=== PATIENT | female | born 1995 | race Caucasian/White ===

== ENCOUNTER 2017-09-11 14:39 | Emergency (ER) | payer OTHER, SELFPAY ==
[2017-09-11 14:42] VITALS: BP 125/69; PULSE 75; RESP 16; TEMP 36.6; O2SAT 99; BMI 25.4
--- NOTE | 2017-09-11 15:05 | RAD_ITS ---
STUDY: X-RAY - LEFT WRIST REASON FOR EXAM: Female, 21 years old. Pain following a fall. TECHNIQUE: 3 view(s) of the wrist were obtained. COMPARISON: None. FINDINGS: Normal visualized distal radius and ulna. Normal radiocarpal articulation. Normal distal radioulnar articulation. Normal carpal bones. Normal carpal articulations. Normal carpometacarpal articulation of the thumb. Normal second through fifth carpometacarpal articulations. Normal visualized metacarpal bones. The soft tissue structures are unremarkable. RAD/Wrist min 3 Views IMPRESSION: Normal x-ray examination of the wrist. Electronically Signed: Alonzo Truong MD at 15:31 EDT Tel [phone], Service support ,
--- NOTE | 2017-09-11 15:15 | RAD_ITS ---
STUDY: X-RAY - LEFT RADIUS AND ULNA REASON FOR EXAM: Female, 21 years old. Left arm pain following a fall. TECHNIQUE: AP and lateral view(s) of the forearm. COMPARISON: None. FINDINGS: There is no demonstrated soft tissue swelling. Normal visualized radius. Normal visualized ulna. RAD/Forearm 2 Views IMPRESSION: Normal x-ray examination of the radius and ulna. Electronically Signed: Alonzo Truong MD at 15:30 EDT Tel [phone], Service support ,
--- NOTE | 2017-09-11 15:26 | ED.VISSUMM ---
- ER Visit Summary Date of Service: 09/11/17 Chief Complaint: Left wrist pain History of Present Illness: The patient is a 21 F who denies any prior medical history presents to the emergency department with left wrist pain and forearm injury. Patient states that last night, she had a mechanical fall. She struck the dorsum of her left forearm right in the mid area. She states that she woke today, she had increasing pain down into the wrist. She describes as a burning pain. She had she went to urgent care. They were concerned because she was complaining of numbness in her entire hand. She describes almost like a glove. She also has burning pain in her wrist and pain with motion. She has never had anything like this before. She did not strike her head. She denies any injury to her neck. Physical Examination: Exam is relatively unremarkable. The patient does complain of significant pain in the wrist with motion. There is no erythema or edema. She has normal pulses. When I hyperextend the fingers, she does flex them and opposition. When I flex, she will extend and opposition. However, she would not state she feels like she cannot move them. Her cap refill is less than 2 seconds. She complains of diminished sensation throughout the entire hand including the palmar aspect in the dorsal aspect. It is not in any neurologic distribution. Test Results: [] Emergency Department Course and Treatment: The patient's examination is inconsistent with reported symptoms. Again, she will move the hand with both extension and flexion of the fingers and wrist in opposition to movement because of pain. She will then state that she cannot move it at baseline. I do feel that likely because of pain. She describes this tingling and numbness through her hand. It is not in a dermatomal or acute nerve distribution. I am unsure if she just has a symptomatic neuropraxia that she is describing is the entire hand. I do not suspect this is a dangerous neurologic injury. She has normal pulses. Her compartments are soft. She does not guard against small range of motion through the compartments. I did obtain plain films. Really does not represent a wrist drop because she does have paresthesias in the palm diminished sensation. Her x-rays are unremarkable. I am going to treat her supportively as if there is a radial nerve palsy from the dorsal injury. She was placed in a wrist splint and start on anti-inflammatories. She is counseled on following up with orthopedics that she may need EMGs. I also counseled her symptoms persist or do not improve over the next 12-24 hours she needs to return to the emergency department. She is comfortable with this plan of care. Treatment Plan: [] Disposition: Discharge Impression:. Contusion of the dorsum of left forearm 2. Left wrist sprain 3. Hand neuropraxia This note was generated with [employer] dictation software. It may contain incorrect words, spelling, and punctuation that were not noted in review of the chart prior to signing ED Disposition - Plan for ED Patient: Chief Complaint: Upper Extremity Injury Instructions: ED Drop Wrist Prescriptions: Naproxen [Naprosyn] 500 mg PO BID #20 tab Referrals: Yelitza Thurston DO [STAFF PHYSICIAN] -
[2017-09-11] MEDS: Naproxen 500 MG Tablet PO (15:28)
== END 2017-09-11 16:06 | disposition home or self-care (01) ==
PROVIDERS: Emergency Provider Emergency Medicine; Family Provider Family Medicine; PCP Family Medicine
DX: S50.12XA Contusion of left forearm, initial encounter (principal); S63.502A Unspecified sprain of left wrist, initial encounter; S64.92XA Injury of unspecified nerve at wrist and hand level of left arm, initial encounter; W18.30XA Fall on same level, unspecified, initial encounter; Y93.89 Activity, other specified; Y92.89 Other specified places as the place of occurrence of the external cause; Y99.8 Other external cause status
CPT/HCPCS: 73090; 73110; 99283

== ENCOUNTER 2017-12-17 02:53 | Emergency (ER) | payer OTHER, SELFPAY ==
[2017-12-17 02:54] VITALS: BP 109/60; PULSE 69; RESP 15; TEMP 36.6; O2SAT 98; BMI 26.3
--- NOTE | 2017-12-17 03:10 | ED.VISSUMM ---
- ER Visit Summary Date of Service: 12/17/17 Chief Complaint: Nausea and vomiting History of Present Illness: The patient is a 22 F no significant past medical history. No prior abdominal surgery other than a prior . She states she was in her normal state of health today. Just prior to going into work around 8 PM the night she started having nausea. And then when she was at work she started having vomiting. She denies any dysuria. She denies any fever. She has had some chills. She denies any diarrhea. Her last menstrual period was November 26. She denies any bleeding. She has had prior episodes like this before. She states she feels lightheaded and dehydrated. Physical Examination: Young female no acute distress. Vital signs are stable afebrile. H EENT exam mildly dry mucous membranes otherwise unremarkable. Neck nontender no lymphadenopathy. Lungs clear to auscultation bilaterally. Heart rate and rhythm no murmur. Rate about 70. Abdomen is soft and nontender. Normal bowel sounds. Nondistended. No peritoneal signs. Both the right upper right lower quadrant unremarkable. No hernias or masses. No signs of obstruction. She is moving all 4 extremities. Neurovascular intact. Back exam nontender. Neurologically she is awake alert with no focal motor or sensory deficits. Test Results: None Emergency Department Course and Treatment: Patient treated with 1 L of normal saline with IV Zofran. Treatment Plan: Clinically the patient appears to have a viral syndrome. Fluids and rest. Zofran as needed for nausea. Follow-up with her primary care physician as needed. Disposition: Discharge Impression: Acute nausea, vomiting and chills secondary to viral syndrome Mild dehydration This note was generated with [employer] dictation software. It may contain incorrect words, spelling, and punctuation that were not noted in review of the chart prior to signing ED Disposition - Plan for ED Patient: Chief Complaint: Abd Pain Referrals: Eb Valenzuela MD [Primary Care Provider] -
[2017-12-17] MEDS: Ondansetron 4 MG/2 ML Vial IV ×2 (03:12→03:53)
[2017-12-17] MEDS: 0.9% Normal Saline 1,000 ML 1000 ML IV (03:12)
--- NOTE | 2017-12-17 03:12 | ED.DEP ---
ED Disposition - Plan for ED Patient: Disposition: Home or Assisted Living Chief Complaint: Abd Pain Instructions: ED Viral Syndrome Prescriptions: Ondansetron [Zofran Odt] 4 mg PO Q4H PRN PRN #7 tab.rapdis PRN Reason: Nausea Referrals: Eb Valenzuela MD [Primary Care Provider] - 3-5 Days if not improving Additional Instructions: Fluids and rest. Zofran as needed for nausea. [place] diet and increase slowly as tolerated. Follow-up your primary care physician if not getting better or return to the ER if worse.
--- NOTE | 2017-12-17 03:15 | DCINST.ED_ITS ---
ED Disposition - Plan for ED Patient: Disposition: Home or Assisted Living Chief Complaint: Abd Pain Instructions: ED Viral Syndrome Prescriptions: Ondansetron [Zofran Odt] 4 mg PO Q4H PRN PRN #7 tab.rapdis PRN Reason: Nausea Referrals: Eb Valenzuela MD [Primary Care Provider] - 3-5 Days if not improving Additional Instructions: Fluids and rest. Zofran as needed for nausea. [place] diet and increase slowly as tolerated. Follow-up your primary care physician if not getting better or return to the ER if worse.
[2017-12-17] MEDS: Ondansetron ODT 4 MG Tablet 8 MG PO (04:42)
[2017-12-17 04:47] VITALS: BP 110/74; PULSE 68; RESP 16; O2SAT 99
== END 2017-12-17 04:51 | disposition home or self-care (01) ==
PROVIDERS: Emergency Provider Emergency Medicine; Family Provider Family Medicine; PCP Family Medicine
DX: J06.9 Acute upper respiratory infection, unspecified (principal); E86.0 Dehydration; R11.2 Nausea with vomiting, unspecified; R68.83 Chills (without fever)
CPT/HCPCS: 96361; 96374; 96376; 99283; J7030; J2405

== ENCOUNTER 2018-02-06 05:47 | Day surgery (SDC) | payer OTHER, SELFPAY ==
[2018-02-06] VITALS (9 sets, daily range): BP systolic 93–128; BP diastolic 34–78; PULSE 58–85; RESP 16–18; TEMP 36–36.8; O2SAT 95–100; BMI 26.0
--- NOTE | 2018-02-06 06:05 | EKG12_ITS ---
Test Reason : PRE OP Blood Pressure : / mmHG Vent. Rate : 067 BPM Atrial Rate : 067 BPM P-R Int : 142 ms QRS Dur : 082 ms QT Int : 412 ms P-R-T Axes : 047 055 056 degrees QTc Int : 435 ms Sinus rhythm with marked sinus arrhythmia Confirmed by RAMESH CORONEL, ARASELI ([id number]), editor index SUKUMAR WAITE ([id number]) on 02/08/2018 2:49:38 PM Referred By: Eleni Dobbs Confirmed By:ARASELI CHANDLER MD
[2018-02-06 06:21] LABS: Internal QC Validated? YES +Cl - CLEAR BKGD; Pregnancy, Urine Negative Negative
--- NOTE | 2018-02-06 07:30 | GALL_PTH ---
PATIENT: ALTON PARSONS LOC: [facility] [place] U#:[id number] AGE/SX: 22/F ROOM: RE02/06/[address]: Dr. Eleni Dobbs MD : 1995 BED: DIS: 02/06/2018 SPEC #: [id number] RECD: 02/06/18 11:05 STATUS: BRIANDA REPeewee #: [id number] ABDIEL: 02/06/18 07:[address]: Eleni Dobbs DEPT: SURGICAL PATHOLOGY RECD BY: Jose R Rodríguez ENTERED: 02/06/18 13:04 SP TYPE: ЕКАТЕРИНА CONTRERAS DR: Dr. Eb Valenzuela MD Tissues: Gallbladder, NOS Procedures: Surgery Specimen Level III HEADER OPERATION: Laparoscopic cholecystectomy with IOC PRE-OP DIAGNOSIS: Biliary dyskinesia TISSUE SUBMITTED: Gallbladder MICROSCOPIC DIAGNOSIS Gallbladder: Chronic cholecystitis. No stones are identified in the container or in the gallbladder. SJ:maynor 02/07/18 MICROSCOPIC DESCRIPTION Slides are reviewed. GROSS DESCRIPTION Received is one container labeled with the patient's name and designated gallbladder. The specimen consists of a gallbladder measuring 8.5 cm in length and up to 3 cm in diameter. The external surface is pink-rodriguez, smooth and glistening for the most part. Focally it is granular, hemorrhagic and contains cautery artifact. The gallbladder contains green-yellow mucoid bile. No stones are identified in the container or in the gallbladder. The mucosa is bile-stained and without any mass lesions. The gallbladder wall measures up to 0.2 cm in thickness. Designer Architect sections from the gallbladder and the cystic duct are submitted in one cassette. / SJ:rg 02/06/18 TC:3 CPT: 20103
--- NOTE | 2018-02-06 07:33 | PCM.DC.GB ---
Discharge Diet: No Restrictions - drink plenty of fluids, avoid carbonated beverages for a couple of days Discharge Activity: Return to Normal Activity, May not drive while taking narcotic pain medications. Lifting Restrictions: no lifting greater than 20 pounds for 2 weeks Call your doctor if your incision/area has: Continuous Slow Oozing, Foul Smelling Discharge Call your doctor if you observe: Fever of 101 or Higher Additional Dressing/Incision Instructions:: Leave dressings in place. May get wet in shower. Do not soak wounds - no tub baths/swimming Allergies/Adverse Reactions: Allergies lavender (Lavandula angustifolia) [lavender] Allergy (Verified 02/06/18 06:49) Hives topiramate [From Topamax] Allergy (Verified 02/06/18 06:49) Other Seizure venom-honey bee [bee venom (honey bee)] Allergy (Verified 02/06/18 06:49) Anaphylaxis Medications to take at Discharge Hydrocodone Bitart/Apap 5-325 [[place] 5MG-325MG] 1 tab PO Q6H PRN PRN 4 Days #15 tab 02/06/18 The following prescriptions were given: Hydrocodone Bitart/Apap 5-325 [[place] 5MG-325MG] 1 tab PO Q6H PRN PRN 4 Days #15 tab PRN Reason: Pain Primary Care Physician: Eb aVlenzuela MD [Primary Care Provider] - Test Results: Test results from this visit will be discussed in further detail at your follow-up appointment, if applicable. Please Follow Up With: Eleni Dobbs MD - call When: in 7-10 days, please call for date and time, thank you
--- NOTE | 2018-02-06 07:35 | PCM.IMDPSTOP ---
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
--- NOTE | 2018-02-06 08:00 | RAD_ITS ---
CLINICAL HISTORY: Female, 22 years old. PROCEDURE: CHOLANGIOGRAM - INTRAOPERATIVE. FLUOROSCOPY TIME (if supplied): (1.9) seconds Dose: 0.3 mGy Placement of the catheter and the procedure were performed by: Dr. Dobbs TECHNIQUE: Fluoroscopy and single fluoroscopic spot image was provided and obtained by the Department of Radiology, under the direction, supervision and review of the surgeon. Radiologist not present intraoperatively. Please see operative note for details. FINDINGS: Iodinated contrast is noted within the cystic duct, CHD, biliary radicles, CBD and duodenum with a single fluoroscopic spot image obtained. RAD/Cholangiogram/ O R,Initial IMPRESSION: Please see operative note for details. Electronically Signed: Lázaro Ponce, at 12:09 EDT Tel , Service support ,
[2018-02-06] MEDS: Bupiv/Epi 0.5% Mpf 30 ML Vial (08:40)
--- NOTE | 2018-02-06 08:51 | PCM.OPRPT ---
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 Appropriate time out protocol was followed. She was then placed in the supine position. The patient was then placed under general endotracheal anesthesia. The abdomen was then prepped with a sterile surgical skin preparation and sterile surgical drapes were placed. The infraumbilical skin fold was grasped with penetrating clamps and the skin and subcutaneous tissues were infiltrated with 0.5% marcaine with epinephrine. A skin incision was then made with a 15 blade scalpel. The anterior abdominal wall was elevated and a Veress needle was carefully inserted into the intraabdominal cavity. It was checked to be in the proper position with a normal saline drop test. A CO2 pneumoperitoneum was then created. Once this was achieved, then the Veress needle was removed and an 11mm trocar was placed in its stead. A 10mm laparoscope was then inserted into the trocar and careful attention was directed to the intraabdominal contents. There was no evidence of injury to any intraabdominal organs from insertion of the Veress needle or the trocar. Under direct visualization, a 5mm subxiphoid trocar and two lateral 5mm right subcostal trocars were placed. The skin and subcutaneous tissues at these sites were infiltrated with 0.5% marcaine with epinephrine prior to placement of these trocars. Attention was then directed to the right upper quadrant of the abdomen. There was some omental adhesions to the free surface of the gallbladder. Graspers were placed in the lateral trocars to grasp the distal aspect of the gallbladder and direct it cephalad and to grasp the gallbladder at Hartmans pouch and direct it laterally. The omental adhesions were taken down by blunt dissection. Dissection then began on the proximal gallbladder continuing down to the area of the triangle of Calot to bluntly dissect out the cystic duct. The neck of the gallbladder was identified and blunt dissection continued to dissect out a segment of the cystic duct. A clip was then placed on the neck of the gallbladder. A small ductotomy was then made. A Ranfac catheter was brought in through a separate skin incision and placed into the cystic duct. An intraoperative cholangiogram was performed under fluoroscopy. The xray revealed no lesions in the common bile duct, arborization of the biliary tree, and good flow into the duodenum. Of note, the cystic duct was tortuous appearing. The Ranfac catheter was then removed and two clips were placed proximal to the ductotomy and the cystic duct was then transected. The cystic artery was visualized and bluntly isolated and then two clips were placed proximally and one clip distally and then it was transected between the proximal and distal clips. The gallbladder was then from the liver bed using electrocautery and thus able to be brought out of the umbilical port. It was then forwarded to pathology for analysis. The liver bed was carefully examined. There was no evidence of bile leakage or bleeding. The cystic duct stump and cystic artery stump had their clips intact and there was no evidence of bile leakage or bleeding. The remainder of the abdomen was grossly normal. The CO2 was released and all trocars removed intact. The periumbilical fascia was approximated with a [id number] 0 vicryl suture. All skin incision were closed with 4-0 monocryl in a subdermal fashion. Cavilol and Steristrips were used to reinforce the skin closure. Sterile dressings were applied to all wounds. The patient was extubated and brought to the Recovery Room in stable condition. - Complications none noted - Admit VTE Documentation VTE Present on Admission: Yes VTE Mechan Device Prophylaxis: SCD's
[2018-02-06] MEDS: HYDROcodone Bitartrate/Apap 5/325 Tablet PO (11:01)
== END 2018-02-06 11:43 | disposition home or self-care (01) ==
LOC: SDC 05:48 → AC 05:49
PROVIDERS: Family Provider Family Medicine; PCP Family Medicine; Visit Provider Surgery
PROC: (CPT 47610; principal; 2018-02-06 07:10)
DX: K81.1 Chronic cholecystitis (principal); D64.9 Anemia, unspecified; F41.9 Anxiety disorder, unspecified; F32.9 Major depressive disorder, single episode, unspecified; F17.210 Nicotine dependence, cigarettes, uncomplicated; Z79.899 Other long term (current) drug therapy
CPT/HCPCS: 47563; 74300; 76000; 81025; 88304; 93005; J7050; J7120; J2405

== ENCOUNTER 2020-02-15 14:25 | Emergency (ER) | payer MEDICAID, SELFPAY ==
[2020-02-15] VITALS (7 sets, daily range): BP systolic 113–136; BP diastolic 72–106; PULSE 78–99; RESP 12–20; TEMP 36.9; O2SAT 95–99; BMI 27.6
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
[2020-02-15 14:53] LABS: Absolute Lymphocyte Count 2.39 X10^3/uL (0.83-4.51); Absolute Neutrophil Count 5.6 X10^3/uL (2.0-7.7); Basophil# 0.02 X10^3/uL; Basophil% 0.2 % (0-1); Eosinophil# 0.05 X10^3/uL; Eosinophils% 0.6 % (0-5); Lymphocyte # 2.39 X10^3/ul (4.0); Lymphocyte % 27.8 % (19-41); Mean Corp Hgb Conc 34.2 g/dL (32-36); Mean Corpuscular Hgb 32.6 pg (27.0-32.0); Mean Corpuscular Volume 95.2 fL (81-99); Mean Platelet Vol. 9.3 fl (6.2-12.0); Monocyte# 0.47 X10^3/uL; Monocyte% 5.5 % (0-10); NRBC Flagged by Analyzer 0 % (0-5); Neutrophil # 5.64 X10^3/uL (2.7-7.7); Neutrophil % 65.7 % (47-70); Platelet Count 279 K/mm3 (150-450); RBC Distribution Width CV 11.6 % (11.6-14.6); RBC Distribution Width SD 40.1 fl (35.1-43.9); Red Blood Count 3.99 M/mm3 (4.2-5.4); White Blood Count 8.6 K/mm3 (4.4-11.0)
[2020-02-15] MEDS: Morphine 4 MG/ML Syringe IV ×3 (15:00→16:18)
[2020-02-15] MEDS: Ondansetron 4 MG/2 ML Vial IV (15:01)
[2020-02-15 15:05] LABS: Anion Gap 9 (5-15); BUN 8 mg/dL (7-18); BUN/Creat Ratio 10.4 RATIO (10-20); Calcium,Total 9.5 mg/dL (8.5-10.1); Chloride 108 mmol/L (98-107); Creatinine, Serum 0.77 mg/dL (0.55-1.02); EST Glomerular Filtration Rate 97 mL/min (>60); Est Glom Filt Rate - Afr Amer 118 mL/min (>60); Glucose 97 mg/dL (74-106); Potassium 3.4 mmol/L (3.5-5.1); Sodium Level 141 mmol/L (136-145)
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
[2020-02-15] MEDS: HYDROmorphone 0.5 MG/0.5 ML SYRINGE IV (16:51)
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
[2020-02-15] MEDS: Propofol 200 MG/20 ML Vial IV BOLUS (17:33)
[2020-02-15 17:50] LABS: Bacteria 0 SEEN /hpf (None Seen); Mucous, Urine 0 SEEN /hpf (<or=2+)
[2020-02-15 17:52] LABS: Color, Urine Yellow (Yellow); Glucose, Dipstick Normal (Normal); Leukocyte Esterase-Dipstick Negative /ul (Negative); Nitrite-Dipstick Negative (Negative); Occult Blood-Urine 50 /ul (Negative); Protein-Dipstick 15 mg/dl (Negative); Specific Gravity, Urine 1.005 (1.002-1.030); Urine Bilirubin Dipstick Negative (Negative); Urine Clarity Sl. Cloudy (Clear); Urine Urobilinogen Normal (Normal); Urine pH 6.5 (5.0 - 8.0)
[2020-02-15 17:57] LABS: Ketone-Dipstick 150 mg/dl (Negative)
[2020-02-15 18:02] LABS: Red Blood Cells-Urine 0-5 SEEN /hpf (0-5); Squamous Epithelial Cells - UA 0-5 SEEN /hpf (5-10); White Blood Cells 0-5 SEEN /hpf (0-5)
== END 2020-02-15 18:49 | disposition home or self-care (01) ==
PROVIDERS: Emergency Provider Emergency Medicine
DX: S52.531A Colles' fracture of right radius, initial encounter for closed fracture (principal); S30.1XXA Contusion of abdominal wall, initial encounter; S20.219A Contusion of unspecified front wall of thorax, initial encounter; V89.2XXA Person injured in unspecified motor-vehicle accident, traffic, initial encounter; Z23 Encounter for immunization; Z79.3 Long term (current) use of hormonal contraceptives; Z87.891 Personal history of nicotine dependence
CPT/HCPCS: 25605; 29125; 71045; 73100; 74177; 76000; 80048; 81001; 85025; 90715; 96361; 96374; 96375; 96376; 99152; 99285; J7030; Q9967; A4216; J2405

== ENCOUNTER → 2020-02-26 14:42 | Outpatient (CLI) | payer MEDICAID, SELFPAY ==
[2020-02-15 14:27] VITALS: BMI 27.6
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
== END ==
PROVIDERS: Referring Provider Orthopaedic Surgery; Visit Provider Orthopaedic Surgery
DX: M25.531 Pain in right wrist (principal); M25.561 Pain in right knee
CPT/HCPCS: 73110; 73564

== ENCOUNTER 2020-02-27 08:04 | Day surgery (SDC) | payer MEDICAID, SELFPAY ==
[2020-02-15 14:27] VITALS: BMI 27.6
[2020-02-27] VITALS (9 sets, daily range): BP systolic 104–112; BP diastolic 64–76; PULSE 68–86; RESP 14–16; TEMP 36.2–36.8; O2SAT 96–100; BMI 25.6
[2020-02-27 08:53] LABS: Internal QC Validated? YES +Cl - CLEAR BKGD; Pregnancy, Urine Negative Negative
[2020-02-27] MEDS: Lactated Ringers 1,000 ML 100 ML IV (09:12)
[2020-02-27] MEDS: Cefazolin 2 GM in 0.9% Normal Saline 100 ML IV (09:23)
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
[2020-02-27] MEDS: Mupirocin Ointment 22gm Tube 1 APPLIC (11:19)
[2020-02-27] MEDS: Bupivacaine Mpf 0.5% 30 ML VIAL (11:21)
--- NOTE | 2020-02-27 11:48 | DCINST_ITS ---
Discharge Diet: No Restrictions - leave splint intact, follow up in 2 weeks, call with concerns, move fingers as tolerated, elevate hand above heart as much as possible first week Discharge Activity: May Not Drive May shower in (days): 1 Ice area for (Minutes): 20 - Every hour while awake. Weight Bearing Status: Weight bearing as tolerated Keep extremity elevated above heart level: Operative Extremity Call your doctor if your incision/area has: Continuous Slow Oozing, Sudden Increased Bleeding, Increased Pain/ Swelling, Increased Redness, Foul Smelling Discharge Call your doctor if you observe: Fever of 101 or Higher, Coldness, Increased Pain, Numbness or Tingling, Change in Color, Calf discomfort Allergies/Adverse Reactions: Allergies lavender (Lavandula angustifolia) [lavender] Allergy (Verified 02/26/20 15:11) Hives topiramate [From Topamax] Allergy (Verified 02/26/20 15:11) Other Seizure venom-honey bee [bee venom (honey bee)] Allergy (Verified 02/26/20 15:11) Anaphylaxis oxycodone Adverse Reaction (Verified 02/27/20 08:58) Itching Medications to take at Discharge Hydrocodone Bitart/Apap 5-325 [Redfield 5MG-325MG] 1 - 2 tablet PO Q6H PRN PRN 5 Days #40 tablet 02/27/20 The following prescriptions were given: Hydrocodone Bitart/Apap 5-325 [Redfield 5MG-325MG] 1 - 2 tablet PO Q6H PRN PRN 5 Days #40 tablet PRN Reason: Pain Transmission Status: Sent to [facility] Primary Care Physician: Eb Valenzuela MD [Primary Care Provider] - Test Results: Test results from this visit will be discussed in further detail at your follow- up appointment, if applicable. Please Follow Up With: Yelitza Thurston, DO - [phone]
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
== END 2020-02-27 14:38 | disposition home or self-care (01) ==
LOC: SDC 08:05 → AC 08:06
PROVIDERS: PCP Family Medicine; Referring Provider Orthopaedic Surgery; Visit Provider Orthopaedic Surgery
PROC: (CPT 25607; principal; 2020-02-27 09:20)
DX: S52.551A Other extraarticular fracture of lower end of right radius, initial encounter for closed fracture (principal); V47.6XXA Car passenger injured in collision with fixed or stationary object in traffic accident, initial encounter; Y93.9 Activity, unspecified; Y92.9 Unspecified place or not applicable; Y99.9 Unspecified external cause status; Z87.891 Personal history of nicotine dependence
CPT/HCPCS: 25607; 64415; 73100; 76000; 81025; C1713; J7120; J2405

== ENCOUNTER → 2021-06-27 09:56 | Outpatient (CLI) | payer SELFPAY ==
[2021-06-27 10:58] LABS: hCG Titer Quant., Serum 10 mIU/mL (1-3)
== END ==
LOC: PAVLAB 09:56
PROVIDERS: PCP Family Medicine; Referring Provider Obstetrics & Gynecology; Visit Provider Obstetrics & Gynecology
DX: N91.2 Amenorrhea, unspecified (principal)
CPT/HCPCS: 36415; 84702

== ENCOUNTER → 2021-06-29 09:21 | Outpatient (CLI) | payer SELFPAY ==
[2021-06-29 10:10] LABS: hCG Titer Quant., Serum 8 mIU/mL (1-3)
== END ==
LOC: PAVLAB 09:22
PROVIDERS: PCP Family Medicine; Referring Provider Obstetrics & Gynecology; Visit Provider Obstetrics & Gynecology
DX: Z34.90 Encounter for supervision of normal pregnancy, unspecified, unspecified trimester (principal)
CPT/HCPCS: 36415; 84702

== ENCOUNTER 2021-07-05 12:08 | Outpatient (CLI) | payer SELFPAY ==
[2021-07-05 14:33] LABS: hCG Titer Quant., Serum 7 mIU/mL (1-3)
== END 2021-07-05 23:59 | disposition short-term general hospital (02) ==
LOC: LAB 12:09
PROVIDERS: PCP Family Medicine; Referring Provider Obstetrics & Gynecology; Visit Provider Obstetrics & Gynecology
DX: O20.0 Threatened abortion (principal); Z3A.00 Weeks of gestation of pregnancy not specified
CPT/HCPCS: 36415; 84702

== ENCOUNTER 2021-07-13 12:22 | Outpatient (CLI) | payer SELFPAY ==
[2021-07-13 13:07] LABS: hCG Titer Quant., Serum 5 mIU/mL (1-3)
== END 2021-07-13 23:59 | disposition short-term general hospital (02) ==
LOC: PAVLAB 12:23
PROVIDERS: PCP Family Medicine; Referring Provider Nurse Practitioner Women's Health; Visit Provider Nurse Practitioner Women's Health
DX: O20.0 Threatened abortion (principal); Z3A.00 Weeks of gestation of pregnancy not specified
CPT/HCPCS: 36415; 84702

== ENCOUNTER → 2022-02-13 | Outpatient (CLI) | payer SELFPAY ==
[2022-02-13 17:01] LABS: HIV - WCH Non-Reactive (Nonreactive); Hepatitis C Antibody Non-Reactive (Nonreactive); Syphilis Antibodies Non-reactive
[2022-02-15 21:06] LABS: Chlamydia By Nucleic Acid AMP Negative (Negative)
[2022-02-16 07:41] LABS: Gonococcus By Nucleic Acid AMP Negative (Negative)
== END | disposition home or self-care (01) ==
PROVIDERS: PCP Family Medicine; Referring Provider Nurse Practitioner Women's Health; Visit Provider Nurse Practitioner Women's Health
DX: N76.0 Acute vaginitis (principal); Z20.2 Contact with and (suspected) exposure to infections with a predominantly sexual mode of transmission
CPT/HCPCS: 36415; 86703; 86780; 86803; 87070; 87205; 87491; 87591

== ENCOUNTER 2022-02-17 00:30 | Emergency (ER) | payer SELFPAY ==
[2022-02-17 00:31] VITALS: BP 138/95; PULSE 102; RESP 18; TEMP 36.4; O2SAT 98; BMI 27.2
[2022-02-17 01:39] VITALS: PULSE 72; RESP 15; O2SAT 98
--- NOTE | 2022-02-17 01:39 | EDS_ITS ---
HPI History of Present Illness Chief Complaint: Allergic Reaction Narrative Narrative: 26-year-old female presenting with allergic reaction. Patient states that she developed a rash, hives felt like her throat might be swelling. She took a rapid release Claritin. She states she has not had any new soaps, dyes, detergents, linens, lotions, etc. She ate [employer] right after she took some Flagyl that she is taking for bacterial vaginosis. She states she was prescribed this and took the first dose tonight. Patient states that she did drink some white claw the day before at a concert but had not been drinking tonight. On arrival to the ED her rash is rapidly resolving. She has no hives. She still little bit itchy. Her throat does not feel like it is closed. She is not short of breath. Patient does state that she has severe anxiety and became very anxious after the symptoms started which may have exacerbated the symptoms. [facility] Medical History Anxiety Possible exposure to STD Status post elective Home Medications levonorgestrel 20 mcg/24 hours (7 yrs) 52 mg intrauterine device (Mirena) 1 device intrauterine ONCE 02/13/22 [History Last Taken Unknown] metronidazole 500 mg tablet 500 mg PO BID 7 days #14 tabs 02/15/22 [Rx Last Taken Unknown] diphenhydramine HCl 25 mg capsule (Benadryl) 25 mg PO TID PRN allergic reaction #10 caps 02/17/22 [Rx Last Taken Unknown] Allergy/AdvReac Type Severity Reaction Status Date / Time lavender (Lavandula Allergy Hives Verified 02/17/22 00:36 angustifolia) [lavender] topiramate [From Topamax] Allergy Other Verified 02/17/22 00:36 venom-honey bee Allergy Anaphylaxis Verified 02/17/22 00:36 [bee venom (honey bee)] oxycodone AdvReac Itching Verified 02/17/22 00:36 Family History Grandmother Diabetes Surgical History S/P S/P cholecystectomy S/P tonsillectomy S/P wisdom tooth extraction S/P wrist surgery Social History Smoking Status: Current some day smoker tobacco type: cigarettes and smokeless tobacco Electronic Cigarette Use: with nicotine alcohol intake: never substance use type: does not use caffeine: Yes what type of physical activity do you participate in: none seatbelt use: always do you feel safe at home: Yes additional social history: Boyfriend- Danilo ANN [facility] ED Constitutional Constitutional ED: Denies chills or fever(s) Eyes Eyes: Denies change in vision or diplopia ENT ENT ED: Reports other Details: Throat tightness ; Denies rhinorrhea Cardiovascular Cardiovascular: Denies chest pain or palpitations Respiratory/Chest Respiratory/Chest: Denies cough or dyspnea Gastrointestinal Gastrointestinal: Denies abdominal pain Genitourinary Genitourinary ED: Denies dysuria or hematuria Integumentary Reports rash and other Details: Itching Neurologic Neurologic: Denies headache(s) Psychiatric Psychiatric: Reports anxiety; Denies depression EXAM Physical Exam Const Vital Signs: 02/17/22 00:31 Temperature 97.5 F L Temperature Source Temporal Pulse Rate 102 H Respiratory Rate 18 Blood Pressure 138/95 H Blood Pressure Mean 109 Pulse Ox 98 Oxygen Delivery Method Room Air Positive well nourished General Appearance ED: NAD; Negative for pallor HEENT Reports moist mucous membranes normocephalic Face and Sinus: normal facial exam Nose: external nose normal Mouth ED: Yes oral and palatal mucosa normal, Yes lips normal, Yes tongue normal, Yes salivary gland normal, Yes moist mucous membranes normal, No dysphonia, No drooling, No muffled voice and No trismus Mouth: oral and palatal mucosa normal, lips normal, tongue normal, salivary gland normal, No dysphonia, No drooling, No muffled voice and No trismus Throat: posterior oropharynx normal, tonsils normal and uvula midline Eyes PERRL and EOMs intact bilaterally General Eye ED: Negative for pale conjunctiva or scleral icterus Chest Wall inspection of chest normal Resp normal respiratory effort and clear to auscultation bilaterally Auscultation: Negative for rales, rhonchi or wheezes Cardio regular rate and regular rhythm GI normal to inspection, nondistended, normoactive bowel sounds Extremity normal to inspection General Extremety ED: Negative for edema or tenderness General Extremity: Negative for edema Neuro oriented x3, CN's II-XII intact bilaterally and no sensory deficits noted Psych Mood & Affect: anxious Skin no rashes or lesions noted General Skin Exam: Negative for jaundice or pallor MDM MDM MDM Narrative Medical decision making narrative: Patient has rapidly improving symptoms. She has no rash on exam. Her airway is patent without stridor. No oropharyngeal edema, sublingual edema. She speaking in full sentences. Lungs are clear to auscultation. Abdomen soft nontender. Patient took Flagyl tonight for the first time for bacterial vaginosis and apparently drank white claws yesterday at a concert. I did look at the guidelines and apparently she is supposed to wait 3 days after drinking to take Flagyl because of the risk of a disulfamide reaction. I suspect this was the cause. Patient counseled to discontinue use of alcohol. I did recommend that she call her [employer] tomorrow to talk about alternatives but likely she can restart this after a couple of days of not drinking. She states he is taken this several times before without any allergies. Impression: 1. Disulfiram like reaction 2. Allergic reaction 3. History of BV Lab Data Attestation: I reviewed the patient's lab results. Discharge Plan Triage Chief Complaint: Allergic Reaction ED Provider: Otf Bess Dx/Rx/DC Orders Instructions: ED General Allergic Reactions Prescriptions: New diphenhydramine HCl [Benadryl] 25 mg capsule 25 mg PO TID PRN (Reason: allergic reaction) Qty: 10 0RF No Action Mirena 20 mcg/24 hours (7 yrs) 52 mg intrauterine device 1 device intrauterine ONCE Label Comments: 08/2021 Rx Instructions: as a single dose metronidazole 500 mg tablet 500 mg PO BID 7 Days Qty: 14 0RF Primary Care Provider: Eb Valenzuela Referrals: Eb Valenzuela MD [Primary Care Provider] - Daisy Kuhn NP, TEMPORARY STAFF ACCOUNTANT-C [Med Staff - Adv Practice Prof] - 3-5 Days Disposition Disposition: Home, Self Care
[2022-02-17] MEDS: DiphenhydrAMINE 12.5 MG/5 ML UDC 25 MG PO (01:42)
== END 2022-02-17 01:52 | disposition home or self-care (01) ==
PROVIDERS: Emergency Provider Student in an Organized Health Care Education/Training Program; PCP Family Medicine; Visit Provider Student in an Organized Health Care Education/Training Program
DX: L27.0 Generalized skin eruption due to drugs and medicaments taken internally (principal); T50.6X5A Adverse effect of antidotes and chelating agents, initial encounter; T51.91XA Toxic effect of unspecified alcohol, accidental (unintentional), initial encounter; N76.0 Acute vaginitis; F41.9 Anxiety disorder, unspecified; F17.210 Nicotine dependence, cigarettes, uncomplicated; Z79.899 Other long term (current) drug therapy
CPT/HCPCS: 99283

== ENCOUNTER 2022-02-20 16:16 | Emergency (ER) | payer SELFPAY ==
[2022-02-20 16:18] VITALS: BP 108/82; PULSE 87; RESP 16; TEMP 37.1; O2SAT 98; BMI 26.6
--- NOTE | 2022-02-20 16:40 | EDS_ITS ---
HPI History of Present Illness Chief Complaint: General Illness Detail of Chief Complaint: COVID exposure. Informant: patient Onset/Context/Timing Onset: Today Context: Gradual Onset Timing: Continuous Current Severity: Mild Maximum Severity: Mild Narrative Narrative: 26-year-old healthy female roommate recently tested positive for COVID on Sunday. Patient states she started to have body aches, sore throat mild headache with nausea no vomiting no diarrhea. No fever no dysuria. Denies any shortness of breath. Prior similar symptoms: No Recent Illness/Hospitalization: No PFSH PFSH Medical History Anxiety Status post elective Home Medications levonorgestrel 20 mcg/24 hours (7 yrs) 52 mg intrauterine device (Mirena) 1 device intrauterine ONCE 02/13/22 [History Last Taken Unknown] metronidazole 500 mg tablet 500 mg PO BID 7 days #14 tabs 02/15/22 [Rx Last Taken Unknown] diphenhydramine HCl 25 mg capsule (Benadryl) 25 mg PO TID PRN allergic reaction #10 caps 02/17/22 [Rx Last Taken Unknown] ondansetron 4 mg disintegrating tablet 4 mg PO Q6H PRN nausea and vomiting #7 tabs 02/20/22 [Rx Last Taken Unknown] Allergy/AdvReac Type Severity Reaction Status Date / Time lavender (Lavandula Allergy Hives Verified 02/20/22 16:17 angustifolia) [lavender] topiramate [From Topamax] Allergy Other Verified 02/20/22 16:17 venom-honey bee Allergy Anaphylaxis Verified 02/20/22 16:17 [bee venom (honey bee)] oxycodone AdvReac Itching Verified 02/20/22 16:17 Family History Grandmother Diabetes Surgical History S/P S/P cholecystectomy S/P tonsillectomy S/P wisdom tooth extraction S/P wrist surgery Social History Smoking Status: Current some day smoker tobacco type: cigarettes and smokeless tobacco Electronic Cigarette Use: with nicotine alcohol intake: never substance use type: does not use caffeine: Yes what type of physical activity do you participate in: none seatbelt use: always do you feel safe at home: Yes additional social history: Boyfriend- Danilo ANN ROS ED ROS Narrative Nausea. Headache. Body aches. Sore throat. Review of Systems ROS Unobtainable: Denies due to encephalopathy Constitutional Constitutional ED: Denies chills or fever(s) Eyes Eyes: Denies blurry vision ENT ENT ED: Reports sore throat; Denies ear pain or rhinorrhea Cardiovascular Cardiovascular: Denies chest pain or palpitations Respiratory/Chest Respiratory/Chest: Denies cough or dyspnea Gastrointestinal Gastrointestinal: Reports nausea; Denies abdominal pain, constipation, diarrhea, melena or vomiting Genitourinary Genitourinary ED: Denies dysuria or hematuria Musculoskeletal Musculoskeletal: Reports arthralgias and myalgias Integumentary Denies abscess or Abrasions Neurologic Neurologic: Reports headache(s) Psychiatric Psychiatric: Denies anxiety Endocrine Endocrinology: Denies cold intolerance Hematologic/Lymphatic Hematologic/Lymphatic: Reports none; Denies easy bruising or lymphadenopathy Allergic/Immunologic Allergic/Immunologic ED: Denies mouth swelling or tongue swelling EXAM Physical Exam Narrative Exam Narrative: Well-appearing 26-year-old female. Vital signs stable afebrile. Pulse ox 90% on room air no hypoxia. Exam normal. Posterior pharynx normal no strep. Neck nontender no meningismus. No lymphadenopathy. Lungs are clear. Heart regular rhythm no murmur. Abdomen soft nontender. Moving all 4 extremities. Neurologic exam normal. NIH is 0. Const Vital Signs: 02/20/22 16:18 Temperature 98.8 F Temperature Source Temporal Pulse Rate 87 Respiratory Rate 16 Blood Pressure 108/82 H Blood Pressure Mean 90 Pulse Ox 98 Oxygen Delivery Method Room Air Positive well nourished, well developed and unkempt; Negative for obese, cachectic or contractures General Appearance ED: unkempt, well developed and NAD; Negative for cachectic, contractures, cyanotic, diaphoretic or pallor Nutritional Appearance: Negative for cachectic or obese HEENT Reports moist mucous membranes; Denies dry mucous membranes Negative for trauma or tenderness Mouth ED: No dry mucous membranes Mouth: No dry mucous membranes Eyes PERRL and EOMs intact bilaterally General Eye ED: Negative for pale conjunctiva Neck no lymphadenopathy, supple and no JVD General: Negative for tenderness Lymph Lymphatic: other Chest Wall inspection of chest normal and palpation of chest normal Chest: Negative for other Resp normal respiratory effort and clear to auscultation bilaterally Effort and Inspection: Negative for retractions Auscultation: Negative for rales or rhonchi Cardio regular rate, regular rhythm, S1 normal heart sound, S2 normal heart sound and no murmurs Palpation: Negative for palpable S3 Rate: Negative for bradycardia Rhythm: Negative for abnormal rhythm GI normal to inspection, nondistended, normoactive bowel sounds, non-tender, non- distended and no masses Inspection: Negative for abdominal distention Auscultation: normoactive bowel sounds Palpation: soft; Negative for tender, guarding, splenomegaly or mass Back/Spine no CVA tenderness General Back: Negative for CVA tenderness Cervical Spine: Negative for cervical spine tenderness Thoracic Spine / Upper Back: Negative for thoracic spinal tenderness Extremity normal to inspection General Extremety ED: Negative for edema or tenderness General Extremity: Negative for edema Neuro oriented x3 and CN's II-XII intact bilaterally Sensorium / Orientation: alert; Negative for orientation impaired, lethargic or stuporous Sensory Exam: No sensory level loss detected Motor Exam: strength 5/5 throughout; Negative for general weakness Psych mental status grossly normal Appearance: unkempt Attitude: No agitated Mood & Affect: Negative for depressed Skin no rashes or lesions noted, no wounds and skin turgor normal General Skin Exam: Negative for elasticity normal, jaundice or pallor Lesions: No lesion noted Rashes: No rashes noted Trauma: Negative for abrasion Wounds: Negative for wounds noted MDM MDM MDM Narrative Medical decision making narrative: Young female with viral symptoms with a roommate that is COVID-positive for the last 3 days. She will be tested for COVID. She requested nausea medication and she will be given p.o. Zofran and p.o. Tylenol. Repeat exam unchanged. Discussed with patient even though her COVID test is negative she still may have COVID versus another virus. Fluids and rest. Zofran as needed for nausea. Motrin Tylenol for body aches and any fever. Return if feeling a lot worse. Follow-up with your doctor if not improving. Lab Data Lab results narrative: Rapid COVID test is negative. Discharge Plan Triage Chief Complaint: General Illness ED Provider: Mihir Christianson Dx/Rx/DC Orders Instructions: ED Viral Syndrome (Adult) Prescriptions: New ondansetron 4 mg tablet,disintegrating 4 mg PO Q6H PRN (Reason: nausea and vomiting) Qty: 7 0RF No Action Mirena 20 mcg/24 hours (7 yrs) 52 mg intrauterine device 1 device intrauterine ONCE Label Comments: 08/2021 Rx Instructions: as a single dose diphenhydramine HCl [Benadryl] 25 mg capsule 25 mg PO TID PRN (Reason: allergic reaction) Qty: 10 0RF metronidazole 500 mg tablet 500 mg PO BID 7 Days Qty: 14 0RF Primary Care Provider: Eb Valenzuela Referrals: Eb Valenzuela MD [Primary Care Provider] - 1 Week if not improving Activity Restrictions/Additional Instructions: Plenty of fluids and rest. Motrin and Tylenol for body aches and any fever. Follow-up with your doctor if not improving return if worse. Zofran as needed for nausea. If you are not nauseated you do not need to take it at all. Disposition Disposition: Home, Self Care
[2022-02-20] MEDS: Acetaminophen 500 MG Tablet 1000 MG PO (16:50)
[2022-02-20] MEDS: Ondansetron ODT 4 MG Tablet PO (16:50)
== END 2022-02-20 18:15 | disposition home or self-care (01) ==
PROVIDERS: Emergency Provider Emergency Medicine; PCP Family Medicine; Visit Provider Emergency Medicine
DX: Z20.822 Contact with and (suspected) exposure to COVID-19 (principal); M25.50 Pain in unspecified joint; M79.10 Myalgia, unspecified site; J02.9 Acute pharyngitis, unspecified; R51.9 Headache, unspecified; R11.0 Nausea; F41.9 Anxiety disorder, unspecified; F17.210 Nicotine dependence, cigarettes, uncomplicated
CPT/HCPCS: 87811; 99282

== ENCOUNTER → 2023-02-20 | Outpatient (CLI) | payer SELFPAY ==
[2023-02-20 15:01] LABS: Absolute Lymphocyte Count 2.08 X10^3/uL (0.83-4.51); Absolute Neutrophil Count 3.6 X10^3/uL (2.0-7.7); Basophil# 0.04 X10^3/uL; Basophil% 0.6 % (0-1); Eosinophils% 1.6 % (0-5); Hematocrit 37.1 % (37-47); Hemoglobin 12.9 g/dL (12.0-15.0); Lymphocyte # 2.08 X10^3/ul (0.83-4.51); Lymphocyte % 33.7 % (19-41); Mean Corp Hgb Conc 34.8 g/dL (32-36); Mean Corpuscular Hgb 32.7 pg (27.0-32.0); Mean Corpuscular Volume 93.9 fL (81-99); Mean Platelet Vol. 9.3 fl (6.2-12.0); Monocyte# 0.32 X10^3/uL; Monocyte% 5.2 % (0-10); NRBC Flagged by Analyzer 0 % (0-5); Neutrophil # 3.62 X10^3/uL (2.7-7.7); Neutrophil % 58.7 % (47-70); Platelet Count 251 K/mm3 (150-450); RBC Distribution Width CV 11.6 % (11.6-14.6); RBC Distribution Width SD 39.6 fl (35.1-43.9); Red Blood Count 3.95 M/mm3 (4.2-5.4); White Blood Count 6.2 K/mm3 (4.4-11.0)
[2023-02-20 15:33] LABS: Thyroid Stim Hormone (TSH) 0.67 uIU/mL (0.358-3.74)
== END | disposition home or self-care (01) ==
PROVIDERS: PCP Family Medicine; Referring Provider Obstetrics & Gynecology; Visit Provider Obstetrics & Gynecology
DX: N93.9 Abnormal uterine and vaginal bleeding, unspecified (principal)
CPT/HCPCS: 36415; 84443; 85025

== ENCOUNTER → 2023-03-02 | Outpatient (CLI) | payer SELFPAY ==
--- NOTE | 2023-03-02 14:44 | US_ITS ---
INDICATION: aub EXAMINATION: Ultrasound US Pelvis Non OB Complete With Transvaginal Imaging TECHNIQUE: Transabdominal and transvaginal pelvic ultrasound was performed. Grayscale, spectral waveform, and color flow Doppler evaluation of the adnexa. COMPARISON: None. FINDINGS: UTERUS: Anteverted. The uterus measures 9.8 x 5.7 x 3.8 cm. There is no uterine mass. The endometrial stripe measures 2.5 mm in AP diameter which is within normal limits. Cervical nabothian cyst. RIGHT OVARY: 4.6 x 3.2 x 3.0 cm. Dominant follicle measures up to 2.3 cm. There is normal arterial inflow and venous outflow present in the right ovary. LEFT OVARY: 4.2 x 3.0 x 2.8 cm. Dominant follicle measures up to 1.8 cm. There is normal arterial inflow and venous outflow present in the left ovary. FREE FLUID: None. US/Pelvic (Non ) IMPRESSION: No acute findings in the pelvis. Electronically Signed: Ethan Figueroa MD at 23:46 EDT ,
== END | disposition home or self-care (01) ==
PROVIDERS: PCP Family Medicine; Referring Provider Obstetrics & Gynecology; Visit Provider Obstetrics & Gynecology
DX: N93.9 Abnormal uterine and vaginal bleeding, unspecified (principal)
CPT/HCPCS: 76830; 76856

== ENCOUNTER → 2023-03-06 | Outpatient (CLI) | payer SELFPAY ==
--- NOTE | 2023-03-06 | EMB_PTH ---
PATIENT: ALTON PARSONS LOC: [facility] U#:[id number] AGE/SX: 27/F ROOM: RE03/06/[address]: ROLF Botello : 1995 BED: DIS: 03/06/2023 SPEC #: [id number] RECD: 03/06/23 15:20 STATUS: BRIANDA OCHOA #: [id number] ABDIEL: 03/06/23 00:[address]: Daisy Kuhn NP DEPT: SURGICAL PATHOLOGY RECD BY: Sylwia Malloy ENTERED: 03/07/23 08:52 SP TYPE: ENDOM BX/C NAMHR DR: Dr. Eb Valenzuela MD Tissues: Endometrium, NOS Procedures: Surgery Specimen Level IV Comments: @ Originally on account #[id number] Req #[id number] HEADER OPERATION: Endometrial biopsy PRE-OP DIAGNOSIS: Abnormal uterine bleeding TISSUE SUBMITTED: Endometrial tissue MICROSCOPIC DIAGNOSIS Endometrial biopsy: Proliferative endometrium. CARA:maynor 03/08/2023 MICROSCOPIC DESCRIPTION Slides are reviewed. GROSS DESCRIPTION Received is one container labeled with the patient's name and not further designated. The specimen consists of multiple fragments of hemorrhagic soft tissue mixed with mucoid tissue that in aggregate measure 3.0 x 2.5 x 0.2 cm. The specimen is totally submitted in one cassette. / CARA:maynor 03/07/2023 TC:4 CPT: 04729
== END | disposition home or self-care (01) ==
PROVIDERS: PCP Family Medicine; Referring Provider Nurse Practitioner Women's Health; Visit Provider Nurse Practitioner Women's Health
DX: N93.9 Abnormal uterine and vaginal bleeding, unspecified (principal)
CPT/HCPCS: 88305

== ENCOUNTER 2023-06-11 04:31 | Emergency (ER) | payer SELFPAY ==
[2023-06-11 04:32] VITALS: BP 117/71; PULSE 95; RESP 14; TEMP 36.6; O2SAT 96; BMI 27.3
[2023-06-11] MEDS: Ondansetron 4 MG/2 ML Vial IV (05:07)
[2023-06-11] MEDS: 0.9% Normal Saline (1000mL) 1,000 ML 999 ML IV ×2 (05:07→06:10)
--- NOTE | 2023-06-11 05:43 | EX.ED.DYSGE1 ---
HPI History of Present Illness Chief Complaint: Nausea/Vomiting Informant: patient Narrative Narrative: Patient is a female approximately 7 weeks . She states with her other 2 pregnancies she experienced extreme nausea and vomiting. She reports for the past 24 hours she has not been able to hold any food or fluid down. She denies any loose stool or diarrhea. She denies any vaginal bleeding discharge or dysuria. She states that in the past Zofran has helped control her symptoms but she does not have this at home. With concern for dehydration she presents for evaluation [facility] Medical History Alcohol use Anemia Anxiety Bipolar 1 disorder COVID-19 Depression Migraine headache Seizures Smoker Status post elective Home Medications vits no.130-ferrous fum 27 mg iron-folic acid 800 mcg tablet ( Vitamin) 1 tab PO DAILY 04/05/23 [History Last Taken Unknown] ondansetron 4 mg disintegrating tablet 4 mg PO TID PRN nausea and vomiting #21 tabs 06/11/23 [Rx Last Taken Unknown] Allergy/AdvReac Type Severity Reaction Status Date / Time lavender (Lavandula Allergy Hives Verified 06/11/23 04:36 angustifolia) [lavender] topiramate [From Topamax] Allergy Other Verified 06/11/23 04:36 venom-honey bee Allergy Anaphylaxis Verified 06/11/23 04:36 [bee venom (honey bee)] marijuana (cannabis) AdvReac Severe Seizures Verified 06/11/23 04:36 oxycodone AdvReac Itching Verified 06/11/23 04:36 Family History Grandmother Diabetes Surgical History S/P S/P cholecystectomy S/P tonsillectomy S/P wisdom tooth extraction S/P wrist surgery Social History number of children: 3 current occupational status: employed current occupation: [employer] in [place] Smoking Status: Former smoker Electronic Cigarette Use: with nicotine and not used alcohol intake: current alcohol intake frequency: other substance use type: does not use caffeine: Yes Type: coffee Number of servings: 1 what type of physical activity do you participate in: none seatbelt use: always do you feel safe at home: Yes additional social history: Boyfriend - Jorge Luis ANN ROS ED Constitutional Constitutional ED: Denies chills or fever(s) ENT ENT ED: Denies sore throat Cardiovascular Cardiovascular: Denies chest pain Respiratory/Chest Respiratory/Chest: Denies cough or dyspnea Gastrointestinal Gastrointestinal: Reports nausea and vomiting; Denies abdominal pain or diarrhea Genitourinary Genitourinary ED: Denies dysuria or hematuria Musculoskeletal Musculoskeletal: Denies myalgias Integumentary Denies rash Neurologic Neurologic: Denies headache(s) Hematologic/Lymphatic Hematologic/Lymphatic: Denies easy bleeding or easy bruising EXAM Physical Exam Const Vital Signs: 06/11/23 04:32 Temperature 98 F Temperature Source Temporal Pulse Rate 95 Respiratory Rate 14 Blood Pressure 117/71 Blood Pressure Mean 86 Pulse Ox 96 Oxygen Delivery Method Room Air Positive well nourished and well developed General Appearance ED: well developed; Negative for pallor HEENT Reports dry mucous membranes HEENT Narrative: No signs of infection noted in the posterior pharynx Mouth ED: Yes dry mucous membranes Mouth: dry mucous membranes Eyes PERRL and EOMs intact bilaterally General Eye ED: Negative for scleral icterus Neck supple Neck Narrative: No nuchal rigidity or meningeal signs noted Resp normal respiratory effort and clear to auscultation bilaterally Cardio regular rate and regular rhythm Rate: other Other Details: Heart is regular rate and rhythm without murmurs rubs or gallops GI non-tender and non-distended GI Narrative: Abdomen is soft nontender nondistended with hyperactive bowel sounds No voluntary guarding or rigidity Auscultation: hyperactive bowel sounds Palpation: soft Back/Spine no CVA tenderness Extremity normal to inspection Extremity Narrative: No asymmetric edema no pitting edema negative Homans' sign bilaterally Neuro oriented x3, CN's II-XII intact bilaterally and no sensory deficits noted Sensorium / Orientation: alert Motor Exam: strength 5/5 throughout Psych mental status grossly normal Skin no rashes or lesions noted Skin Narrative: Skin turgor is slightly increased General Skin Exam: Negative for jaundice or pallor MDM MDM MDM Narrative Medical decision making narrative: Patient presented to the ER with stable vitals and a soft nonsurgical abdomen. Denied any abdominal pain vaginal bleeding or discharge and therefore I do not feel need for an emergent ultrasound. Differential diagnosis is hyperemesis gravidarum versus acute kidney injury versus electrolyte abnormality versus severe dehydration. Patient blood work was obtained which reveal no clinically significant findings to her kidney function or electrolyte. Patient was given Zofran which resolved her vomiting and she was hydrated with 2 L of fluid. At this time as her history and exam indicate dehydration but laboratory studies and vitals indicate dehydration is more mild in nature and patient is now able to tolerate oral fluid she was given Zofran for home and discharged. History & Record Review Discussion w/independent historian: Patient Lab Data Attestation: I reviewed the patient's lab results. Labs: Laboratory Results - last 24 hr 06/11/23 05:00 Sodium 138 Potassium 3.6 Chloride 108 H Carbon Dioxide 23.0 Anion Gap 7 BUN 6 L Creatinine 0.52 L Estim Creat Clear Calc 144.94 Est GFR (MDRD) Af Amer 182 Est GFR (MDRD) Non-Af 150 BUN/Creatinine Ratio 11.6 Glucose 103 Calcium 8.4 L Magnesium 2.0 Discharge Plan Triage Chief Complaint: Nausea/Vomiting ED Provider: Blaine Luis Dx/Rx/DC Orders Clinical Impression: Hyperemesis gravidarum, Dehydration Instructions: Dehydration, ED Hyperemesis Gravidarum Prescriptions: New ondansetron 4 mg tablet,disintegrating 4 mg PO TID PRN (Reason: nausea and vomiting) Qty: 21 2RF No Action Vitamin 27 mg iron- 800 mcg tablet 1 tab PO DAILY Primary Care Provider: Eb Valenzuela Referrals: bE Valenzuela MD [Primary Care Provider] - Activity Restrictions/Additional Instructions: Please use the Zofran as directed to help prevent further nausea and vomiting and keep yourself well-hydrated. Return to the ER should you have any further concerns Disposition Disposition: Home, Self Care
[2023-06-11 05:53] LABS: Anion Gap 7 (5-15); BUN 6 mg/dL (7-18); BUN/Creat Ratio 11.6 RATIO (10-20); Calcium,Total 8.4 mg/dL (8.5-10.1); Chloride 108 mmol/L (98-107); Creatinine, Serum 0.52 mg/dL (0.55-1.02); EST Glomerular Filtration Rate 150 mL/min (>60); Est Glom Filt Rate - Afr Amer 182 mL/min (>60); Estimated Creatinine Clearance 144.94 ml/min; Glucose 103 mg/dL (74-106); Potassium 3.6 mmol/L (3.5-5.1); Sodium Level 138 mmol/L (136-145)
[2023-06-11 07:01] VITALS: BP 129/88; PULSE 76; RESP 15; O2SAT 98
== END 2023-06-11 07:03 | disposition home or self-care (01) ==
PROVIDERS: Emergency Provider Emergency Medicine; PCP Family Medicine; Visit Provider Emergency Medicine
DX: O21.1 Hyperemesis gravidarum with metabolic disturbance (principal); Z3A.01 Less than 8 weeks gestation of pregnancy; Z87.891 Personal history of nicotine dependence
CPT/HCPCS: 80048; 83735; 96361; 96374; 99283; J7030; A4216; J2405

== ENCOUNTER → 2023-06-13 | Outpatient (CLI) | payer SELFPAY ==
[2023-06-18 08:07] LABS: Chlamydia By Nucleic Acid AMP Negative (Negative); Gonococcus By Nucleic Acid AMP Negative (Negative)
== END | disposition home or self-care (01) ==
LOC: LABSPEC 13:31
PROVIDERS: PCP Family Medicine; Referring Provider Registered Nurse; Visit Provider Registered Nurse
DX: Z34.90 Encounter for supervision of normal pregnancy, unspecified, unspecified trimester (principal); Z3A.00 Weeks of gestation of pregnancy not specified
CPT/HCPCS: 87086; 87088; 87491; 87591

== ENCOUNTER → 2023-07-09 | Outpatient (CLI) | payer SELFPAY ==
[2023-07-09 15:44] LABS: Absolute Lymphocyte Count 2.56 X10^3/uL (0.83-4.51); Absolute Neutrophil Count 4.8 X10^3/uL (2.0-7.7); Basophil# 0.04 X10^3/uL; Basophil% 0.5 % (0-1); Eosinophil# 0.12 X10^3/uL; Eosinophils% 1.5 % (0-5); Hematocrit 37.3 % (37-47); Lymphocyte # 2.56 X10^3/ul (0.83-4.51); Lymphocyte % 31.8 % (19-41); Mean Corp Hgb Conc 34.9 g/dL (32-36); Mean Corpuscular Hgb 32.5 pg (27.0-32.0); Mean Corpuscular Volume 93.3 fL (81-99); Monocyte% 6.2 % (0-10); NRBC Flagged by Analyzer 0 % (0-5); Neutrophil # 4.81 X10^3/uL (2.7-7.7); Neutrophil % 59.6 % (47-70); Platelet Count 254 K/mm3 (150-450); RBC Distribution Width CV 11.6 % (11.6-14.6); RBC Distribution Width SD 39.7 fl (35.1-43.9); White Blood Count 8.1 K/mm3 (4.4-11.0)
[2023-07-09 16:40] LABS: NATERA MAILED SPECIMEN
[2023-07-09 17:24] LABS: HIV - WCH Non-Reactive (Nonreactive); Hepatitis B Surface Antigen Non-Reactive (Nonreactive); Hepatitis C Antibody Non-Reactive (Nonreactive); Rubella IgG Reactive (Nonreactive); Syphilis Antibodies Non-reactive
== END | disposition home or self-care (01) ==
PROVIDERS: Registered Nurse; PCP Family Medicine; Referring Provider Obstetrics & Gynecology; Visit Provider Obstetrics & Gynecology
DX: Z34.81 Encounter for supervision of other normal pregnancy, first trimester (principal); Z3A.00 Weeks of gestation of pregnancy not specified
CPT/HCPCS: 36415; 85025; 86703; 86762; 86780; 86803; 86850; 86900; 86901; 87340

== ENCOUNTER → 2023-08-06 | Outpatient (CLI) | payer SELFPAY ==
--- OUTSIDE RECORDS SUMMARY | 2023-08-06 17:46 | XMS RPT_ITS | CCD ---
Author Name Unknown Address [address] [place] [address] Organization [facility] Care Team Providers Care Bone Crusher Name Role Phone EARL CABRAL Unavailable Unavailable CELSO SCOTT Unavailable Unavailable GABRIEL CONTRERAS Unavailable Unavailable CELSO SCOTT Unavailable Unavailable LOMASNEY DO~[id number], MARCIE WASHBURN Admitting Unavailable LOMASNEY DO~[id number], MARCIE WASHBURN Attending Unavailable AA NO PCP NO PCP, NO PCP~[id number] AA NO PCP Pr imary Care Unavailable DAGOBERTO CONRAD MD Attending Unavailable DAGOBERTO CONRAD MD Primary Care Unavailable DAGOBERTO CONRAD MD Admitting Unavailable JAIME AVILA Attending Unavailable JAIME AVILA Primary Care Unavailable JAIME AVILA Admitting Unavailable JAIME AVILA Attending Unavailable JAIME AVILA Primary Care Unavailable JAIME AVILA Admitting Unavailable Celso Scott MD Primary Care Provider CELSO SCOTT Primary Care Unavailab le Allergies Allergy Classification Reported Allergen(s) Allergy Type Date of Onset Reaction(s) Facility (1 source) topiramate Drug Allergy [facility] Repository (1 source) oxyCODONE Drug Allergy [facility] Repository (1 source) topiramate Drug Allergy [facility] Repository (3 sources) BEE STING; Translations: [BEE STING] Propensity to adverse reactions (disorder) 6 Shortness of Breath [facility] Repository (1 source) LAVENDAR; Translations: [LAVENDAR] Propensity to adverse reactions (disorder) [facility] Repository (2 sources) topiramate; Translations: [TOPIRAMATE] Drug Allergy 6 Other: See Comments [facility] Work Phone: (2 sources) Lavender; Translations: [LAVENDER] Drug Allergy [address] [facility] Medications Current Medications Medication Drug Class(es) Dates Sig (Normalized) Sig (Original) levonorgestrel 0.418998 mg/hr intrauterine system (2 sources) Progestin, Progestin-containi ng Intrauterine Device Start: 08-30-2011 End: 09-04-2026 levonorgestrel (MIRENA) 20 mcg/24 hours (7 yrs) 52 mg IUD Indications: Encounter for IUD insertion 1 Each by INTRAUTERINE route as directed. 1 Each 0 09/05/2021 09/04/2026 Active Completed/Discontinued Medications Medication Drug Class(es) Dates Sig (Normalized) Sig (Original) naproxen 375 mg oral tablet (1 source) Nonsteroidal Anti-inflammatory Drug Start: 08-22-2021 take 1 tablet by mouth every eight hours as needed naproxen (NAPROSYN) 375 mg tablet Take 1 tablet by mouth three times daily as needed (pain). 60 tablet 1 08/22/2021 Active Problems Active Problems Problem Classification Problem Date Documented Da te Episodic/Chronic Abdominal pain (2 sources) Pelvic and perineal pain; Translations: [PELVIC AND PERINEAL PAIN] Onset: 01-22-2023 Episodic Immunizations and screening for infectious disease (1 source) Contact with and (suspected) exposure to infections with a predominantly sexual mode of transmission; Translations: [CONTCT W EXPOS INFECT SEXUAL TRNSMS] Onset: 01-22-2023 Episodic Mood disorders (1 source) Bipolar affective disorder, currently depressed, moderate; Translations: [Bipolar disorder, current episode depressed, moderate] Onset: 05-08-2017 05-08-2017 Chronic Other gastrointestinal disorders (1 source) Malabsorption - iron; Translations: [Intestinal malabsorption, unspecified] Onset: 09-20-2016 09-20-2016 Chronic Other upper respiratory infections (1 source) Upper respiratory infection; Translations: [Acute upper respiratory infection, unspecified] 06-10-2023 Episodic Residual codes; unclassified (1 source) High risk heterosexual behavior; Translations: [HIGH RISK HETEROSEXUAL BEHAVIOR] Onset: 01-22-2023 Episodic Past or Other Problems Problem Classification Problem Date Documented Date Episodic/Chronic Deficiency and other anemia (1 source) Megaloblastic anemia due to vitamin B>12< deficiency; Translations: [Other megaloblastic anemias, not elsewhere classified] Onset: 09-20-2016 09-20-2016 Episodic Deficiency and other anemia (1 source) Iron deficiency anemia; Translations: [Iron deficiency anemia, unspecified] Onset: 09-20-2016 09-20-2016 Episodic Viral infection (1 source) Herpes simplex; Translations: [Herpesviral infection, unspecified] Onset: 08-18-2015 08-18-2015 Episodic Results Test Name Value Interpretation Reference Range Facil ity Vital Signs Date Time Vital Sign Value Performing Clinician Faci lity 06-10-2023 11:23-0500 Body temperature 98.1 [degF] Miraclericardo Araujo FIELD TEST ENGINEER.INGREDIENT MIXER Work Phone: [facility] 06-10-2023 11:23-0500 Body weight 74.39 kg Miracleeliu Araujo FIELD TEST ENGINEER.INGREDIENT MIXER Work Phone: [facility] 06-10-2023 11:23-0500 Diastolic blood pressure 71 mm[Hg] Miracle Araujo FIELD TEST ENGINEER.INGREDIENT MIXER Work Phone: [facility] 06-10-2023 11:23-0500 Heart rate 76 /min Miracleeliu Ruggierogs FIELD TEST ENGINEER.INGREDIENT MIXER Work Phone: [facility] 06-10-2023 11:23-0500 Respiratory rate 20 /min Miracle Araujo FIELD TEST ENGINEER.INGREDIENT MIXER Work Phone: [facility] 06-10-2023 11:23-0500 SaO2% (BldA) [Mass fraction] 100 % Miracle Araujo FIELD TEST ENGINEER.INGREDIENT MIXER Work Phone: [facility] 06-10-2023 11:23-0500 Systolic blood pressure 113 mm[Hg] Miracle Araujo FIELD TEST ENGINEER.INGREDIENT MIXER Work Phone: [facility] Encounters Encounter Date Encounter Type Care Provider Facility Start: 06-10-2023 End: 06-10-2023 ambulatory CELSO SCOTT Facility:[facility] Start: 06-10-2023 End: 06-10-2023 Patient encounter procedure Miracle Araujo FIELD TEST ENGINEER.INGREDIENT MIXER Work Phone: [facility] Procedures Date Procedure Procedure Detail Performing Clinician Start: 06-10-2023 STREP A MOLECULAR (POC) [facility] Provider Start: 05-26-2023 Urinalysis DAGOBERTO Espinosa Plan of Treatment Date Care Activity Detail Author Start: 05-14-2027 Urine microalbumin profile DTaP,Tdap,Td Vaccine (10 - Td or Tdap) [facility] Start: 08-22-2024 Pap Testing Pap Testing [facility] Start: 06-10-2023 End: 06-24-2023 COVID & INFLUENZA A/B & RSV NAAT, ROUTINE COVID & INFLUENZA A/B & RSV NAAT, ROUTINE Microbiology Routine Upper respiratory tract infection, unspecified type Expected: 06/10/2023, Expires: 06/24/2023 [facility] Work Phone: Immunizations Immunization Date Immunization Notes Care Provider Zay jules 05-08-2017 influenza, injectabl e, quadrivalent, contains preservative Miracle Araujo FIELD TEST ENGINEER.INGREDIENT MIXER Work Phone: [facility] 05-08-2017 influenza virus vaccine, unspecified formulation Miracle Araujo FIELD TEST ENGINEER.INGREDIENT MIXER Work Phone: [facility] 04-14-2016 influenza, injectabl e, quadrivalent, contains preservative Miracle Araujo FIELD TEST ENGINEER.INGREDIENT MIXER Work Phone: [facility] 09-15-2015 tetanus toxoid, redu codi diphtheria toxoid, and acellular pertussis vaccine, adsorbed Miracle Araujo FIELD TEST ENGINEER.INGREDIENT MIXER Work Phone: [facility] Work Phone: 06-28-2011 influenza virus vaccine, unspecified formulation Miracle Araujo FIELD TEST ENGINEER.INGREDIENT MIXER Work Phone: [facility] 05-24-2010 influenza virus vaccine, live, attenuated, for intranasal use Miracle Araujo FIELD TEST ENGINEER.INGREDIENT MIXER Work Phone: [facility] Work Phone: 05-04-2009 influenza virus vaccine, live, attenuated, for intranasal use Miracle Araujo FIELD TEST ENGINEER.[facility] Work Phone: [facility] Work Phone: 01-22-2008 human papilloma viru s vaccine, quadrivalent Miracle Araujo FIELD TEST ENGINEER.[facility] Work Phone: [facility] 08-28-2007 human papilloma viru s vaccine, quadrivalent Miracle Araujo FIELD TEST ENGINEER.[facility] Work Phone: [facility] Work Phone: 06-13-2007 human papilloma viru s vaccine, quadrivalent Miracle Araujo FIELD TEST ENGINEER.[facility] Work Phone: [facility] Work Phone: 06-13-2007 influenza virus vaccine, live, attenuated, for intranasal use Miracle Araujo FIELD TEST ENGINEER.[facility] Work Phone: [facility] Work Phone: 06-13-2007 Meningococcal, MCV4, unspecified conjugate formulation(groups A, C, Y and W-135) Miracle Araujo FIELD TEST ENGINEER.[facility] Work Phone: [facility] Work Phone: 06-13-2007 tetanus toxoid, redu codi diphtheria toxoid, and acellular pertussis vaccine, adsorbed Miracle Araujo FIELD TEST ENGINEER.[facility] Work Phone: [facility] Work Phone: 06-14-2004 influenza virus vaccine, unspecified formulation Miracle Araujo FIELD TEST ENGINEER.[facility] Work Phone: [facility] Work Phone: 01-17-2000 diphtheria, tetanus toxoids and acellular pertussis vaccine Miracle Araujo FIELD TEST ENGINEER.INGREDIENT MIXER Work Phone: [facility] Work Phone: 01-17-2000 measles, mumps and rubella virus vaccine Miracle Araujo FIELD TEST ENGINEER.INGREDIENT MIXER Work Phone: [facility] Work Phone: 01-17-2000 poliovirus vaccine, inactivated Miracle Araujo FIELD TEST ENGINEER.[facility] Work Phone: [facility] Work Phone: 08-02-1998 chicken pox (disease) Shaheed a Yasemin FIELD TEST ENGINEER.[facility] Work Phone: [facility] Work Phone: 04-30-1996 diphtheria, tetanus toxoids and acellular pertussis vaccine Miracle Araujo FIELD TEST ENGINEER.[facility] Work Phone: [facility] Work Phone: 04-30-1996 haemophilus influenz ae type b vaccine, HbOC conjugate Miracle Araujo FIELD TEST ENGINEER.[facility] Work Phone: [facility] Work Phone: 04-30-1996 measles, mumps and rubella virus vaccine Miracle Araujo FIELD TEST ENGINEER.[facility] Work Phone: [facility] Work Phone: 08-21-1995 hepatitis B vaccine, pediatric or pediatric/adolescent dosage Miraclericardo Araujo FIELD TEST ENGINEER.[facility] Work Phone: [facility] Work Phone: 05-30-1995 diphtheria, tetanus toxoids and acellular pertussis vaccine Miracle Araujo FIELD TEST ENGINEER.[facility] Work Phone: [facility] Work Phone: 05-30-1995 haemophilus influenz ae type b vaccine, HbOC conjugate Miracle Araujo FIELD TEST ENGINEER.[facility] Work Phone: [facility] Work Phone: 05-30-1995 trivalent poliovirus vaccine, live, oral Miracle Araujo FIELD TEST ENGINEER.[facility] Work Phone: [facility] 03-28-1995 diphtheria, tetanus toxoids and pertussis vaccine Miracle Araujo FIELD TEST ENGINEER.[facility] Work Phone: [facility] Work Phone: 03-28-1995 haemophilus influenz ae type b vaccine, HbOC conjugate Miracle Araujo FIELD TEST ENGINEER.[facility] Work Phone: [facility] Work Phone: 03-28-1995 hepatitis B vaccine, pediatric or pediatric/adolescent dosage Miracle Araujo FIELD TEST ENGINEER.INGREDIENT MIXER Work Phone: [facility] Work Phone: 03-28-1995 trivalent poliovirus vaccine, live, oral Miracle Araujo FIELD TEST ENGINEER.INGREDIENT MIXER Work Phone: [facility] 01-31-1995 diphtheria, tetanus toxoids and pertussis vaccine Miracle Araujo FIELD TEST ENGINEER.[facility] Work Phone: [facility] Work Phone: 01-31-1995 haemophilus influenz ae type b vaccine, HbOC conjugate Miracle Araujo FIELD TEST ENGINEER.[facility] Work Phone: [facility] Work Phone: 01-31-1995 hepatitis B vaccine, pediatric or pediatric/adolescent dosage Miracle Araujo FIELD TEST ENGINEER.[facility] Work Phone: [facility] Work Phone: 01-31-1995 trivalent poliovirus vaccine, live, oral Miracle Araujo FIELD TEST ENGINEER.[facility] Work Phone: [facility] Payers Date Payer Category Payer Unknown [id number] 1994 Unknown [id number] 1994 Unknown [id number] 1994 Unknown [id number] 1959 Self-pay Unknown [id number] Social History Date Type Detail Facility Start: [facility]23 [facility] History of tobacco use Current smoker [facility] History of tobacco use Cigarette Smoker C [facility] Start: 06-09-2020 End: 06-10-2023 Cigarettes smoked current (pack per day) - Reported 0.[address] [facility] Start: 06-10-2023 Tobacco use and exposure Smoke less tobacco non-user [facility] Start: 06-10-2023 Alcohol intake Current non-dr therapist asst of alcohol (finding) [facility] Start: 06-09-2020 End: 06-10-2023 Tobacco use panel [facility] Adult Depression Scr eening Assessment [address] [facility] Start: 06-10-2023 Tobacco Comment father outdoors [facility] Start: 05-05-[address] [facility] Start: 1995 Sex Assigned At Female C [facility] Start: 01-22-2020 Gender identity Identifies as female gender (finding) [facility] Start: 01-22-2020 Sexual orientation Bisexual (finding ) [facility] Note 06-10-2023 Addendum Note - Miracle Araujo APRN.CNP - 06/10/2023 2:58 PM EST Note Date & Type Note Facility 06-10-2023 Miscellaneous Notes Addended by: MIRACLE ARAUJO on: 06/10/2023 02:58 PM Modules accepted: Orders documented in this encounter [facility] Progress note 06-10-2023 Note Date & Type Note Facility 06-10-2023 Note HNO ID: [id number] Author: Miracle Araujo APRN.CNP Service: ? Author Type: Nurse Practitioner Type: Progress Notes Filed: 06/10/2023 11:51 AM Note Text: This note was created using NoteWriter. Subjective Alton Parsons is a 27 year old female. 27 year old female with PMH anemia presents for complaints of illness. Acute onset of symptoms was this morning. Endorses she woke up with multiple symptoms +sore throat +headache +nasal congestion +body aches +fatigue +fever + chills +N/V (states her baseline related to ) currently 7 weeks Denies abdominal pain Denies vaginal bleeding Denies vaginal discharge The history is provided by the patient. No foreign language instructor was used. Flu Like Symptoms This is a new problem. The current episode started today. The problem occurs constantly. The problem has been unchanged. Associated symptoms include arthralgias, congestion, coughing, fatigue, a fever, headaches, myalgias and a sore throat. Pertinent negatives include no abdominal pain, anorexia, change in bowel habit, chest pain, chills, joint swelling, nausea, neck pain, numbness, rash, swollen glands, urinary symptoms, vertigo, visual change, vomiting or weakness. Nothing aggravates the symptoms. She has tried nothing for the symptoms. The treatment provided no relief. PAST MEDICAL HISTORY Diagnosis Date Acne Anemia Anxiety Bipolar disorder (HCC) Depression Enteritis due to Rotavirus 8 mo Genital herpes Headache(784.0) PMH - PAST MEDICAL HISTORY OF febrile seizures PMH - PAST MEDICAL HISTORY OF 05/03/2000 normal color vision hemorrhage Seizure (HCC) Varicella 1999 age 5-6 years PAST SURGICAL HISTORY Procedure Laterality Date SECTION HX 2017 EXTRACTION, ERUPTED TOOTH OR EXPOSED ROOT (ELEVATION AND/OR FORCEPS REMOVAL) 2011 REMOVAL GALLBLADDER 01/2018 TONSILLECTOMY PRIMARY/SECONDARY WRIST SURGERY HX Right metal in wrist ALLERGIES Bee Sting, Lavender, and Topamax [Topiramate] MEDICATIONS PNV no.95/ferrous fum/folic ac ( MULTIVITAMINS ORAL) Take 1 tablet by mouth once daily. levonorgestrel (MIRENA) 20 mcg/24 hours (7 yrs) 52 mg IUD 1 Each by INTRAUTERINE route as directed. (Patient not taking: Reported on 06/10/2023) naproxen (NAPROSYN) 375 mg tablet Take 1 tablet by mouth three times daily as needed (pain). (Patient not taking: Reported on 06/10/2023) levonorgestrel (MIRENA) 20 mcg/24 hr INTRAUTERINE IUD 1 Each by INTRAUTERINE route one time only for 1 dose. FAMILY HISTORY Problem Relation Age of Onset other (irregular heart beat) Mother Diabetes Maternal Grandfather Hypertension Maternal Grandfather maternal side other (heart disease) Maternal Grandfather maternal side other (anuerysm) Maternal Grandfather paternal side Social History Tobacco Use Smoking status: Former Packs/day: .5 Types: Cigarettes Smokeless tobacco: Never Tobacco comments: father outdoors Vaping Use Vaping Use: current everyday user Substances: Nicotine Substance Use Topics Alcohol use: No Drug use: No Review of Systems Constitutional: Positive for fatigue and fever. Negative for chills. HENT: Positive for congestion, postnasal drip, sinus pressure, sinus pain and sore throat. Eyes: Negative for photophobia, pain, discharge, redness, itching and visual disturbance. Respiratory: Positive for cough. Negative for apnea, choking and chest tightness. Cardiovascular: Negative for chest pain, palpitations and leg swelling. Gastrointestinal: Negative for abdominal pain, anorexia, change in bowel habit, nausea and vomiting. Musculoskeletal: Positive for arthralgias and myalgias. Negative for joint swelling and neck pain. Skin: Negative for color change, pallor and rash. Allergic/Immunologic: Positive for immunocompromised state. Negative for environmental allergies and food allergies. Neurological: Positive for headaches. Negative for vertigo, weakness and numbness. Hematological: Negative for adenopathy. Does not bruise/bleed easily. Psychiatric/Behavioral: Negative for agitation and behavioral problems. Objective BP 113/71 Pulse 76 Temp 36.7 ?C (98.1 ?F) Resp 20 Wt 74.4 kg (164 lb) LMP (LMP Unknown) SpO2 100% BMI 26.47 kg/m? Physical Exam Vitals and nursing note reviewed. Constitutional: General: She is not in acute distress. Appearance: Normal appearance. She is normal weight. She is not ill-appearing, toxic-appearing or diaphoretic. HENT: Head: Normocephalic and atraumatic. Right Ear: Ear canal and external ear normal. Left Ear: Ear canal and external ear normal. Nose: Congestion present. No rhinorrhea. Mouth/Throat: Mouth: Mucous membranes are moist. Pharynx: Posterior oropharyngeal erythema present. No oropharyngeal exudate. Eyes: General: Right eye: No discharge. Left eye: No discharge. Extraocular Movements: (more content not included)... [facility] History of Present illness Narrative 06-10-2023 Miracle Araujo APRN.[facility] - 06/10/2023 11:43 AM EST Note Date & Type Note Facility 06-10-2023 History of Presen t illness Narrative This note was created using [employer]qSearch[employer]. Subjective Alton Parsons is a 27 year old female. 27 year old female with PMH anemia presents for complaints of illness. Acute onset of symptoms was this morning. Endorses she woke up with multiple symptoms +sore throat +headache +nasal congestion +body aches +fatigue +fever + chills +N/V (states her baseline related to ) currently 7 weeks Denies abdominal pain Denies vaginal bleeding Denies vaginal discharge The history is provided by the patient. No foreign language instructor was used. Flu Like Symptoms This is a new problem. The current episode started today. The problem occurs constantly. The problem has been unchanged. Associated symptoms include arthralgias, congestion, coughing, fatigue, a fever, headaches, myalgias and a sore throat. Pertinent negatives include no abdominal pain, anorexia, change in bowel habit, chest pain, chills, joint swelling, nausea, neck pain, numbness, rash, swollen glands, urinary symptoms, vertigo, visual change, vomiting or weakness. Nothing aggravates the symptoms. She has tried nothing for the symptoms. The treatment provided no relief. PAST MEDICAL HISTORY Diagnosis Date Acne Anemia Anxiety Bipolar disorder (HCC) Depression Enteritis due to Rotavirus 8 mo Genital herpes Headache(784.0) PMH - PAST MEDICAL HISTORY OF febrile seizures PMH - PAST MEDICAL HISTORY OF 05/03/2000 normal color vision hemorrhage Seizure (HCC) Varicella 1998 age 5-6 years PAST SURGICAL HISTORY Procedure Laterality Date SECTION HX 2017 EXTRACTION, ERUPTED TOOTH OR EXPOSED ROOT (ELEVATION AND/OR FORCEPS REMOVAL) 2011 REMOVAL GALLBLADDER 01/2018 TONSILLECTOMY PRIMARY/SECONDARY <AGE 11 WRIST SURGERY HX Right metal in wrist ALLERGIES Bee Sting, Lavender, and Topamax [Topiramate] MEDICATIONS PNV no.95/ferrous fum/folic ac ( MULTIVITAMINS ORAL) Take 1 tablet by mouth once daily. levonorgestrel (MIRENA) 20 mcg/24 hours (7 yrs) 52 mg IUD 1 Each by INTRAUTERINE route as directed. (Patient not taking: Reported on 06/10/2023) naproxen (NAPROSYN) 375 mg tablet Take 1 tablet by mouth three times daily as needed (pain). (Patient not taking: Reported on 06/10/2023) levonorgestrel (MIRENA) 20 mcg/24 hr INTRAUTERINE IUD 1 Each by INTRAUTERINE route one time only for 1 dose. FAMILY HISTORY Problem Relation Age of Onset other (irregular heart beat) Mother Diabetes Maternal Grandfather Hypertension Maternal Grandfather maternal side other (heart disease) Maternal Grandfather maternal side other (anuerysm) Maternal Grandfather paternal side Social History Tobacco Use Smoking status: Former Packs/day: .5 Types: Cigarettes Smokeless tobacco: Never Tobacco comments: father outdoors Vaping Use Vaping Use: current everyday user Substances: Nicotine Substance Use Topics Alcohol use: No Drug use: No Review of Systems Constitutional: Positive for fatigue and fever. Negative for chills. HENT: Positive for congestion, postnasal drip, sinus pressure, sinus pain and sore throat. Eyes: Negative for photophobia, pain, discharge, redness, itching and visual disturbance. Respiratory: Positive for cough. Negative for apnea, choking and chest tightness. Cardiovascular: Negative for chest pain, palpitations and leg swelling. Gastrointestinal: Negative for abdominal pain, anorexia, change in bowel habit, nausea and vomiting. Musculoskeletal: Positive for arthralgias and myalgias. Negative for joint swelling and neck pain. Skin: Negative for color change, pallor and rash. Allergic/Immunologic: Positive for immunocompromised state. Negative for environmental allergies and food allergies. Neurological: Positive for headaches. Negative for vertigo, weakness and numbness. Hematological: Negative for adenopathy. Does not bruise/bleed easily. Psychiatric/Behavioral: Negative for agitation and behavioral problems. Objective BP 113/71 Pulse 76 Temp 36.7 C (98.1 F) Resp 20 Wt 74.4 kg (164 lb) LMP (LMP Unknown) SpO2 100% BMI 26.47 kg/m Physical Exam Vitals and nursing note reviewed. Constitutional: General: She is not in acute distress. Appearance: Normal appearance. She is normal weight. She is not ill-appearing, toxic-appearing or diaphoretic. HENT: Head: Normocephalic and atraumatic. Right Ear: Ear canal and external ear normal. Left Ear: Ear canal and external ear normal. Nose: Congestion present. No rhinorrhea. Mouth/Throat: Mouth: Mucous membranes are moist. Pharynx: Posterior oropharyngeal erythema present. No oropharyngeal exudate. Eyes: General: Right eye: No discharge. Left eye: No discharge. Extraocular Movements: Extraocular movements intact. Conjunctiva/sclera: Conjunctivae normal. Pupils: Pupils are equal, round, and reactive to light. Cardiovascular: Rate and Rhythm: Normal rate and regular rhythm. Pulses: Normal pulses. Heart sounds: Normal heart sounds. No murmur heard. No friction rub. Pulmonary: Effort: Pulmonary effort is normal. No respiratory distress. Breath sounds: Normal breath sounds. No stridor. No wheezing, rhonchi or rales. Chest: Chest wall: No tenderness. Abdominal: General: Abdomen is flat. There is no distension. Palpations: Abdomen is soft. There is no mass. Tenderness: There is no abdominal tenderness. There is no right CVA tenderness, left CVA tenderness, guarding or rebound. Hernia: No hernia is present. Musculoskeletal: General: No swelling, tenderness, deformity or signs of injury. Normal range of motion. Cervical back: Normal range of motion and neck supple. No rigidity. Right lower leg: No edema. Left lower leg: No edema. Lymphadenopathy: Cervical: No cervical adenopathy. Skin: General: Skin is warm and dry. Capillary Refill: Capillary refill takes less than 2 seconds. Coloration: Skin is not jaundiced or pale. Findings: No bruising, erythema, lesion or rash. Neurological: General: No focal deficit present. Mental Status: She is alert and oriented to person, place, and time. Cranial Nerves: No cranial nerve deficit. Sensory: No sensory deficit. Motor: No weakness. Coordination: Coordination normal. Gait: Gait normal. Psychiatric: Mood and Affect: Mood normal. Behavior: Behavior normal. Thought Content: Thought content normal. Judgment: Judgment normal. Assessment and Plan ASSESSMENT/PLAN: 1. Upper respiratory tract infection, unspecified type - ICD9: 465.9, ICD10: J06.9 Acute onset this morning upon awakening (Less than 5 hours sleep) Hemodynamically stable - Discussed viral etiology and rationale for treatment. - Group A strep molecular testing negative - Symptomatic treatment with prn analgesia - Supportive care with fluids and rest - The patient may also use OTC cough and cold meds as needed, warm salt water gargles, throat lozenges and/or OTC throat spray as needed, and nasal saline gtts and suction prn. - Follow up in 3-5 days if symptoms persist or sooner if worsening of symptoms - STREP A MOLECULAR (POC) Miracle Araujo APRN.INGREDIENT MIXER documented in this encounter [facility] History of Past illness Narrative 08-02-2016 Note Date & Type Note Facility documented as of this encounter (statuses as of 06/10/2023) [facility] Evaluation note Note Date & Type Note Facility documented in this encounter [facility] Summary Purpose Family History No Family History Records FoundNo Family History Records FoundNo Family History Records FoundNo Family History Records Found Advance Directives No Advanced Directives Records FoundNo Advanced Directives Records FoundNo Advanced Directives Records FoundNo Advanced Directives Records Found Health Concerns Infection Onset Date Last Indicated Resolved Time COVID-19 Rule-Out 06/10/2023 06/10/2023 Additional Source Comments INFORMATION SOURCE (unrecogn ized section and content) DATE CREATED AUTHOR AUTHOR'S ORGANIZ ATION 01/22/2023 [facility] DATE CREATED AUTHOR AUTHOR'S ORGANIZ ATION 05/28/2023 [facility] DATE CREATED AUTHOR AUTHOR'S ORGANIZ ATION 06/12/2023 [facility] Source Comments (unrecognize d section and content) In the event this informatio n is protected by the Federal Confidentiality of Alcohol and Drug Abuse Patient Records regulations: The Federal rules restrict any use of the information to criminally investigate or prosecute any alcohol or drug abuse patient.[facility] Reason for Visit (unrecogniz ed section and content) Specialty Diagnoses / Procedures Referred By Dawson oviedo Referred To Contact [facility] Diagnoses woke up with sore throat, headache, sniffly, dizzy Procedures EST SAME DAY [facility] [address] [place] [address] Referral ID Status Reason Start Date Expiration Date Visits Requested Visits Authorized [id number] Pending Review Financial Clearance Required - Self Pay 3 09/08/2023 1 1 Care Teams (unrecognized sec tion and content) FOR RECORDS PERTAINING TO PATIENTS WHO ARE OR HAVE BEEN ENROLLED IN A CHEMICAL DEPENDENCY/SUBSTANCEABUSE PROGRAM, SOME INFORMATION MAY BE OMITTED. This clinical summary was aggregated from multiple sources. Caution should be exercised in using it in the provision of clinical care. This summary normalizes information from multiple sources, and as a consequence, information in this document may materially change the coding, format and clinical context of patient data. In addition, data may be omitted in some cases. CLINICAL DECISIONS SHOULD BE BASED ON THE PRIMARY CLINICAL RECORDS. [employer] [facility]. provides no warranty or guarantee of the accuracy or completeness of information in this document.
== END | disposition home or self-care (01) ==
PROVIDERS: PCP Family Medicine; Referring Provider Obstetrics & Gynecology; Visit Provider Obstetrics & Gynecology
DX: Z36.9 Encounter for antenatal screening, unspecified (principal)
CPT/HCPCS: 36415

== ENCOUNTER → 2023-09-03 | Outpatient (CLI) | payer SELFPAY ==
--- NOTE | 2023-09-03 15:25 | US_ITS ---
INDICATION: anatomy scan EXAMINATION: Ultrasound US OB Greater Than 14 Weeks TECHNIQUE: Transabdominal pelvic ultrasound was performed. COMPARISON: No relevant prior comparison study available LMP: Unknown. Beta-hCG: Unknown. Provided EGA: None. FINDINGS: INTRAUTERINE GESTATION(s): Single. HEART MOTION is 145 bpm. BIOMETRIC MEASUREMENTS: HEAD CIRCUMFERENCE: 18.1 cm which corresponds to 20 weeks and 4 days. BIPARIETAL DIAMETER: 4.7 cm which corresponds to 20 weeks and 1 day. ABDOMINAL CIRCUMFERENCE: 15.4 cm which corresponds to 20 weeks and 4 days. FEMORAL LENGTH: 3 cm which corresponds to 19 weeks and 1 day. ESTIMATED DUE DATE (MARISELA): 01/19/2024 ESTIMATED WEIGHT: 325 mg +/- 49 g, 82% tile PRESENTATION: Breech AMNIOTIC FLUID INDEX (GIULIA): Within normal limits, the largest fluid pocket measures 2.5 cm BIOPHYSICAL PROFILE (BPP): Not assessed. PLACENTA: Posterior. There is no placenta previa or abruption. There is heterogeneous area anterior likely due to venous lakes CERVIX: The cervix is closed measuring about 5.3 cm in length. MATERNAL OVARIES: Not seen. FREE FLUID: None. ANATOMY: LATERAL VENTRICLES: Visualized. CHOROID PLEXUS: Visualized. MIDLINE FALX: Visualized. CAVUM SEPTUM PELLUCIDI: Visualized. CEREBELLUM: Unremarkable CISTERNA MAGNA: Visualized measuring 7 mm. UPPER LIP: Grossly intact but suboptimally seen FOUR CHAMBER HEART VIEW: Unremarkable. LEFT VENTRICULAR OUTFLOW TRACT: Visualized. STOMACH: Visualized. KIDNEYS: Visualized, no hydronephrosis. URINARY BLADDER: Visualized. UMBILICAL CORD INSERTION into the abdomen: Unremarkable. UMBILICAL CORD vessel number: Normal three vessel cord. SPINE: Unremarkable. No posterior spinal defect observed. UPPER AND LOWER EXTREMITIES: Present. GENDER: Appears to be male. IMPRESSION: Single live intrauterine with an estimated gestational age of 20 weeks and 2 days. MARISELA is 01/19/2024 Electronically Signed: Bruno Rogers MD at 11:29 EST , INDICATION: anatomy scan EXAMINATION: Ultrasound US OB Greater Than 14 Weeks TECHNIQUE: Transabdominal pelvic ultrasound was performed. COMPARISON: No relevant prior comparison study available LMP: Unknown. Beta-hCG: Unknown. Provided EGA: None. FINDINGS: INTRAUTERINE GESTATION(s): Single. HEART MOTION is 145 bpm. BIOMETRIC MEASUREMENTS: HEAD CIRCUMFERENCE: 18.1 cm which corresponds to 20 weeks and 4 days. BIPARIETAL DIAMETER: 4.7 cm which corresponds to 20 weeks and 1 day. ABDOMINAL CIRCUMFERENCE: 15.4 cm which corresponds to 20 weeks and 4 days. FEMORAL LENGTH: 3 cm which corresponds to 19 weeks and 1 day. ESTIMATED DUE DATE (MARISELA): 01/19/2024 ESTIMATED WEIGHT: 325 mg +/- 49 g, 82% tile PRESENTATION: Breech AMNIOTIC FLUID INDEX (GIULIA): Within normal limits, the largest fluid pocket measures 2.5 cm BIOPHYSICAL PROFILE (BPP): Not assessed. PLACENTA: Posterior. There is no placenta previa or abruption. There is heterogeneous area anterior likely due to venous lakes CERVIX: The cervix is closed measuring about 5.3 cm in length. MATERNAL OVARIES: Not seen. FREE FLUID: None. ANATOMY: LATERAL VENTRICLES: Visualized. CHOROID PLEXUS: Visualized. MIDLINE FALX: Visualized. CAVUM SEPTUM PELLUCIDI: Visualized. CEREBELLUM: Unremarkable CISTERNA MAGNA: Visualized measuring 7 mm. UPPER LIP: Grossly intact but suboptimally seen FOUR CHAMBER HEART VIEW: Unremarkable. LEFT VENTRICULAR OUTFLOW TRACT: Visualized. STOMACH: Visualized. KIDNEYS: Visualized, no hydronephrosis. URINARY BLADDER: Visualized. UMBILICAL CORD INSERTION into the abdomen: Unremarkable. UMBILICAL CORD vessel number: Normal three vessel cord. SPINE: Unremarkable. No posterior spinal defect observed. UPPER AND LOWER EXTREMITIES: Present. GENDER: Appears to be male. US/OB Anatomy w/ Transvaginal IMPRESSION: Single live intrauterine with an estimated gestational age of 20 weeks and 2 days. MARISELA is 01/19/2024 Electronically Signed: Bruno Rogers MD at 11:30 EST ,
== END | disposition home or self-care (01) ==
LOC: OPUS 15:21 → US 15:24
PROVIDERS: PCP Family Medicine; Referring Provider Registered Nurse; Visit Provider Registered Nurse
DX: O23.40 Unspecified infection of urinary tract in pregnancy, unspecified trimester (principal); Z3A.00 Weeks of gestation of pregnancy not specified
CPT/HCPCS: 76805; 76817; 87086

== ENCOUNTER 2023-09-05 16:44 | Emergency (ER) | payer SELFPAY ==
[2023-09-05 16:47] VITALS: BP 110/70; PULSE 98; RESP 18; TEMP 35.8; O2SAT 99; BMI 28.5
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
[2023-09-05 17:49] LABS: Absolute Lymphocyte Count 1.85 X10^3/uL (0.83-4.51); Absolute Neutrophil Count 7.3 X10^3/uL (2.0-7.7); Basophil# 0.02 X10^3/uL; Basophil% 0.2 % (0-1); Hematocrit 32.6 % (37-47); Hemoglobin 11.5 g/dL (12.0-15.0); Lymphocyte # 1.85 X10^3/ul (0.83-4.51); Lymphocyte % 18.9 % (19-41); Mean Corp Hgb Conc 35.3 g/dL (32-36); Mean Corpuscular Hgb 32.7 pg (27.0-32.0); Mean Corpuscular Volume 92.6 fL (81-99); Mean Platelet Vol. 9.1 fl (6.2-12.0); Monocyte# 0.46 X10^3/uL; Monocyte% 4.7 % (0-10); NRBC Flagged by Analyzer 0 % (0-5); Neutrophil % 74.8 % (47-70); Platelet Count 265 K/mm3 (150-450); RBC Distribution Width CV 12.2 % (11.6-14.6); RBC Distribution Width SD 40.5 fl (35.1-43.9); Red Blood Count 3.52 M/mm3 (4.2-5.4); White Blood Count 9.8 K/mm3 (4.4-11.0)
[2023-09-05 17:52] VITALS: BP 117/72; PULSE 80; RESP 17; TEMP 36; O2SAT 98
[2023-09-05 18:03] LABS: Anion Gap 6 (5-15); BUN 5 mg/dL (7-18); BUN/Creat Ratio 9.2 RATIO (10-20); Calcium,Total 9.2 mg/dL (8.5-10.1); Chloride 109 mmol/L (98-107); Creatinine, Serum 0.54 mg/dL (0.55-1.02); EST Glomerular Filtration Rate 141 mL/min (>60); Est Glom Filt Rate - Afr Amer 171 mL/min (>60); Estimated Creatinine Clearance 159.93 ml/min; Glucose 87 mg/dL (74-106); Potassium 3.4 mmol/L (3.5-5.1); Sodium Level 138 mmol/L (136-145)
[2023-09-05 18:46] VITALS: PULSE 87; RESP 17; O2SAT 98
--- NOTE | 2023-09-05 19:02 | ED.RN ---
[address] BOSTON, PT DOES NOT REQUIRE A SITTER.
[2023-09-05 19:09] LABS: Amphetamine Urine VISTA NEGATIVE (<1000 ng/mL); Barbiturate Urine VISTA NEGATIVE (< 200 ng/mL); Benzodiazepine Urine VISTA NEGATIVE (< 200 ng/mL); Cocaine Urine VISTA NEGATIVE (< 300 ng/mL); Ecstacy Urine VISTA NEGATIVE (< 500 ng/mL); Methadone Urine VISTA NEGATIVE (< 300 ng/mL); PCP Urine VISTA NEGATIVE (< 25 ng/mL); THC Urine VISTA NEGATIVE (< 50 ng/mL); Vista UDS pH Range 5
[2023-09-05 19:59] VITALS: BP 117/72; PULSE 87; RESP 17; TEMP 36.1; O2SAT 98
--- OUTSIDE RECORDS SUMMARY | 2023-09-05 21:07 | XMS RPT_ITS | CCD ---
Author Name Unknown Address [address] [place] [address] Organization [facility] Care Team Providers Care Doll Repairer Name Role Phone EARL CABRAL Unavailable Unavailable KASEY SCOTT Unavailable Unavailable GABRIEL CONTRERAS Unavailable Unavailable KASEY SCOTT Unavailable Unavailable LOMASNEY DO~[id number], MARCIE WASHBURN Admitting Unavailable LOMASNEY DO~[id number], MARCIE WASHBURN Attending Unavailable AA NO PCP NO PCP, NO PCP~[id number] AA NO PCP Pr imary Care Unavailable DAGOBERTO CONRAD MD Attending Unavailable DAGOBERTO CONRAD MD Primary Care Unavailable DAGOBERTO CONRAD MD Admitting Unavailable JAIME AVILA Attending Unavailable JAIME AVILA Primary Care Unavailable JAIME AVILA Admitting Unavailable JAIME AVILA Attending Unavailable JAIME AVILA Primary Care Unavailable JAIME AVILA Admitting Unavailable Kasey Scott MD Primary Care Provider KASEY SCOTT Primary Care Unavailab le Allergies Allergy Classification Reported Allergen(s) Allergy Type Date of Onset Reaction(s) Facility (1 source) topiramate Drug Allergy [facility] Repository (1 source) oxyCODONE Drug Allergy [facility] Repository (1 source) topiramate Drug Allergy [facility] Repository (3 sources) BEE STING; Translations: [BEE STING] Propensity to adverse reactions (disorder) 6 Shortness of Breath [facility] Repository (1 source) LAVENDAR; Translations: [LAVENDAR] Propensity to adverse reactions (disorder) [facility] Repository (2 sources) topiramate; Translations: [TOPIRAMATE] Drug Allergy 6 Other: See Comments [facility] Work Phone: (2 sources) Lavender; Translations: [LAVENDER] Drug Allergy 6 Hives [facility] Medications Current Medications Medication Drug Class(es) Dates Sig (Normalized) Sig (Original) levonorgestrel 0.064245 mg/hr intrauterine system (2 sources) Progestin, Progestin-containi [...] 11:23-0500 Body temperature 98.1 [degF] Miraclericardo Araujo LAMINATING MACHINE OFFBEARER.HEAD NURSE Work Phone: [facility] 06-10-2023 11:23-0500 Body weight 74.39 kg Miracleeliu Araujo LAMINATING MACHINE OFFBEARER.HEAD NURSE Work Phone: [facility] 06-10-2023 11:23-0500 Diastolic blood pressure 71 mm[Hg] Miracle Araujo LAMINATING MACHINE OFFBEARER.HEAD NURSE Work Phone: [facility] 06-10-2023 11:23-0500 Heart rate 76 /min Miracleeliu Ruggierogs LAMINATING MACHINE OFFBEARER.HEAD NURSE Work Phone: [facility] 06-10-2023 11:23-0500 Respiratory rate 20 /min Miracle Araujo LAMINATING MACHINE OFFBEARER.HEAD NURSE Work Phone: [facility] 06-10-2023 11:23-0500 SaO2% (BldA) [Mass fraction] 100 % Miracle Araujo LAMINATING MACHINE OFFBEARER.HEAD NURSE Work Phone: [facility] 06-10-2023 11:23-0500 Systolic blood pressure 113 mm[Hg] Miracle Araujo LAMINATING MACHINE OFFBEARER.HEAD NURSE Work Phone: [facility] Encounters Encounter Date Encounter Type Care Provider Facility Start: 06-10-2023 End: 06-10-2023 ambulatory KASEY SCOTT Facility:[facility] Start: 06-10-2023 End: 06-10-2023 Patient encounter procedure Miracle Araujo LAMINATING MACHINE OFFBEARER.HEAD NURSE Work Phone: [facility] Procedures Date Procedure Procedure Detail Performing Clinician Start: 06-10-2023 STREP A MOLECULAR (POC) [facility] Provider Start: 05-26-2023 Urinalysis DAGOBERTO Espinosa Plan of Treatment Date Care Activity Detail Author Start: 05-14-2027 Urine microalbumin profile DTaP,Tdap,Td Vaccine (10 - Td or Tdap) [facility] Start: 08-22-2024 Pap Testing Pap Testing [facility] Start: 06-10-2023 End: 06-24-2023 COVID & INFLUENZA A/B & RSV NAAT, ROUTINE COVID & INFLUENZA A/B & RSV NAAT, ROUTINE Microbiology Routine Upper respiratory tract infection, unspecified type Expected: 06/10/2023, Expires: 06/24/2023 [facility] Work Phone: Immunizations Immunization Date Immunization Notes Care Provider Zay juels 05-08-2017 influenza, injectabl e, quadrivalent, contains preservative Miracle Araujo LAMINATING MACHINE OFFBEARER.HEAD NURSE Work Phone: [facility] 05-08-2017 influenza virus vaccine, unspecified formulation Miracle Araujo LAMINATING MACHINE OFFBEARER.HEAD NURSE Work Phone: [facility] 04-14-2016 influenza, injectabl e, quadrivalent, contains preservative Miracle Araujo LAMINATING MACHINE OFFBEARER.HEAD NURSE Work Phone: [facility] 09-15-2015 tetanus toxoid, redu codi diphtheria toxoid, and acellular pertussis vaccine, adsorbed Miracle Araujo LAMINATING MACHINE OFFBEARER.HEAD NURSE Work Phone: [facility] Work Phone: 06-28-2011 influenza virus vaccine, unspecified formulation Miracle Araujo LAMINATING MACHINE OFFBEARER.HEAD NURSE Work Phone: [facility] 05-24-2010 influenza virus vaccine, live, attenuated, for intranasal use Miracle Araujo LAMINATING MACHINE OFFBEARER.HEAD NURSE Work Phone: [facility] Work Phone: 05-04-2009 influenza virus vaccine, live, attenuated, for intranasal use Miracle Araujo LAMINATING MACHINE OFFBEARER.[facility] Work Phone: [facility] Work Phone: 01-22-2008 human papilloma viru s vaccine, quadrivalent Miracle Araujo LAMINATING MACHINE OFFBEARER.[facility] Work Phone: [facility] 08-28-2007 human papilloma viru s vaccine, quadrivalent Miracle Araujo LAMINATING MACHINE OFFBEARER.[facility] Work Phone: [facility] Work Phone: 06-13-2007 human papilloma viru s vaccine, quadrivalent Miracle Araujo LAMINATING MACHINE OFFBEARER.[facility] Work Phone: [facility] Work Phone: 06-13-2007 influenza virus vaccine, live, attenuated, for intranasal use Miracle Araujo LAMINATING MACHINE OFFBEARER.[facility] Work Phone: [facility] Work Phone: 06-13-2007 Meningococcal, MCV4, unspecified conjugate formulation(groups A, C, Y and W-135) Miracle Araujo LAMINATING MACHINE OFFBEARER.[facility] Work Phone: [facility] Work Phone: 06-13-2007 tetanus toxoid, redu codi diphtheria toxoid, and acellular pertussis vaccine, adsorbed Miracle Araujo LAMINATING MACHINE OFFBEARER.[facility] Work Phone: [facility] Work Phone: 06-14-2004 influenza virus vaccine, unspecified formulation Miracle Araujo LAMINATING MACHINE OFFBEARER.[facility] Work Phone: [facility] Work Phone: 01-17-2000 diphtheria, tetanus toxoids and acellular pertussis vaccine Miracle Araujo LAMINATING MACHINE OFFBEARER.HEAD NURSE Work Phone: [facility] Work Phone: 01-17-2000 measles, mumps and rubella virus vaccine Miracle Araujo LAMINATING MACHINE OFFBEARER.HEAD NURSE Work Phone: [facility] Work Phone: 01-17-2000 poliovirus vaccine, inactivated Miracle Araujo LAMINATING MACHINE OFFBEARER.[facility] Work Phone: [facility] Work Phone: 08-02-1998 chicken pox (disease) Shaheed a Yasemin LAMINATING MACHINE OFFBEARER.[facility] Work Phone: [facility] Work Phone: 04-30-1996 diphtheria, tetanus toxoids and acellular pertussis vaccine Miracle Araujo LAMINATING MACHINE OFFBEARER.[facility] Work Phone: [facility] Work Phone: 04-30-1996 haemophilus influenz ae type b vaccine, HbOC conjugate Miracle Araujo LAMINATING MACHINE OFFBEARER.[facility] Work Phone: [facility] Work Phone: 04-30-1996 measles, mumps and rubella virus vaccine Miracle Araujo LAMINATING MACHINE OFFBEARER.[facility] Work Phone: [facility] Work Phone: 08-21-1995 hepatitis B vaccine, pediatric or pediatric/adolescent dosage Miraclericardo Araujo LAMINATING MACHINE OFFBEARER.[facility] Work Phone: [facility] Work Phone: 05-30-1995 diphtheria, tetanus toxoids and acellular pertussis vaccine Miracle Araujo LAMINATING MACHINE OFFBEARER.[facility] Work Phone: [facility] Work Phone: 05-30-1995 haemophilus influenz ae type b vaccine, HbOC conjugate Miracle Araujo LAMINATING MACHINE OFFBEARER.[facility] Work Phone: [facility] Work Phone: 05-30-1995 trivalent poliovirus vaccine, live, oral Miracle Araujo LAMINATING MACHINE OFFBEARER.[facility] Work Phone: [facility] 03-28-1995 diphtheria, tetanus toxoids and pertussis vaccine Miracle Araujo LAMINATING MACHINE OFFBEARER.[facility] Work Phone: [facility] Work Phone: 03-28-1995 haemophilus influenz ae type b vaccine, HbOC conjugate Miracle Araujo LAMINATING MACHINE OFFBEARER.[facility] Work Phone: [facility] Work Phone: 03-28-1995 hepatitis B vaccine, pediatric or pediatric/adolescent dosage Miracle Araujo LAMINATING MACHINE OFFBEARER.HEAD NURSE Work Phone: [facility] Work Phone: 03-28-1995 trivalent poliovirus vaccine, live, oral Miracle Araujo LAMINATING MACHINE OFFBEARER.HEAD NURSE Work Phone: [facility] 01-31-1995 diphtheria, tetanus toxoids and pertussis vaccine Miracle Araujo LAMINATING MACHINE OFFBEARER.[facility] Work Phone: [facility] Work Phone: 01-31-1995 haemophilus influenz ae type b vaccine, HbOC conjugate Miracle Araujo LAMINATING MACHINE OFFBEARER.[facility] Work Phone: [facility] Work Phone: 01-31-1995 hepatitis B vaccine, pediatric or pediatric/adolescent dosage Miracle Araujo LAMINATING MACHINE OFFBEARER.[facility] Work Phone: [facility] Work Phone: 01-31-1995 trivalent poliovirus vaccine, live, oral Miracle Araujo LAMINATING MACHINE OFFBEARER.[facility] Work Phone: [facility] Payers Date Payer Category Payer Unknown [id number] 1994 Unknown [id number] 1994 Unknown [id number] 1994 Unknown [id number] 1960 Self-pay Unknown [id number] Social History Date Type Detail Facility Start: [facility]10[facility]23 [facility] History of tobacco use Current smoker [facility] History of tobacco use Cigarette Smoker [facility] Start: 06-09-2020 End: 06-10-2023 Cigarettes smoked current (pack per day) - Reported 0.5 [facility] Start: 06-10-2023 Tobacco use and exposure Smoke less tobacco non-user [facility] Start: 06-10-2023 Alcohol intake 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) [facility] Start: 06-09-2020 End: 06-10-2023 Tobacco use panel [facility] Adult Depression Scr eening Assessment 4 [facility] Start: 06-10-2023 Tobacco [facility] Start: 05-05-2023 [facility] Start: 1995 Sex Assigned At Female [facility] Start: 01-22-2020 Gender identity Identifies as female gender (finding) [facility] Start: 01-22-2020 Sexual orientation Bisexual (finding ) [facility] Note 06-10-2023 Addendum Note - Miracle Araujo APRN.CNP - 06/10/2023 2:58 PM EST Note Date & Type Note Facility 06-10-2023 Miscellaneous Notes Addended by: MIRACLE ARAUJO on: 06/10/2023 02:58 PM Modules accepted: Orders documented in this encounter [facility] Progress note 06-10-2023 Note Date & Type Note Facility 06-10-2023 Note HNO ID: [id number] Author: Miracle Araujo APRN.CNP Service: ? Author [...] history is provided by the patient. No stereotype caster was used. Flu Like Symptoms This is [...] discharge. Extraocular Movements: (more content not included)... [facility] History of Present illness Narrative 06-10-2023 Miracle Araujo APRN.[facility] - 06/10/2023 11:43 AM EST Note Date & Type Note Facility 06-10-2023 History of Presen t illness Narrative This note was created using [employer]. Subjective Alton Parsons is a 27 year [...] history is provided by the patient. No stereotype caster was used. Flu Like Symptoms This is [...] - STREP A MOLECULAR (POC) Miracle Araujo APRN.HEAD NURSE documented in this encounter [facility] History of Past illness Narrative 08-02-2016 Note Date & Type Note Facility documented as of this encounter (statuses as of 06/10/2023) [facility] Evaluation note Note Date & Type Note Facility documented in this encounter [facility] Summary Purpose Family History No Family [...] DATE CREATED AUTHOR AUTHOR'S ORGANIZ ATION 01/22/2023 [facility] DATE CREATED AUTHOR AUTHOR'S ORGANIZ ATION 05/28/2023 [facility] DATE CREATED AUTHOR AUTHOR'S ORGANIZ ATION 06/12/2023 [facility] Comments (unrecognize d section and content) In the event this informatio n is protected by the Federal Confidentiality of Alcohol and Drug Abuse Patient Records regulations: The Federal rules restrict any use of the information to criminally investigate or prosecute any alcohol or drug abuse patient.[facility] Reason for Visit (unrecogniz ed section and content) Specialty Diagnoses / Procedures Referred By Dawson oviedo Referred To Contact [facility] Diagnoses woke up with sore throat, headache, sniffly, dizzy Procedures EST SAME DAY [facility] [address] [place] [address] Referral ID Status Reason Start Date Expiration Date Visits Requested Visits Authorized [id number] Pending Review Financial Clearance Required - Self [...] BE BASED ON THE PRIMARY CLINICAL RECORDS. [employer] [facility]. provides no warranty or guarantee of the accuracy or completeness of information in this document.
== END 2023-09-05 20:00 | disposition home or self-care (01) ==
PROVIDERS: Emergency Provider Emergency Medicine; PCP Family Medicine; Visit Provider Emergency Medicine
DX: O99.342 Other mental disorders complicating pregnancy, second trimester (principal); F31.9 Bipolar disorder, unspecified; R45.2 Unhappiness; Z3A.19 19 weeks gestation of pregnancy; Z79.899 Other long term (current) drug therapy; Z87.891 Personal history of nicotine dependence
CPT/HCPCS: 80048; 80307; 80320; 85025; 99282; G0480

== ENCOUNTER → 2023-10-15 | Outpatient (CLI) | payer SELFPAY ==
[2023-10-15 13:39] LABS: Absolute Lymphocyte Count 1.87 X10^3/uL (0.83-4.51); Absolute Neutrophil Count 6.5 X10^3/uL (2.0-7.7); Basophil# 0.02 X10^3/uL; Basophil% 0.2 % (0-1); Eosinophil# 0.06 X10^3/uL; Eosinophils% 0.7 % (0-5); Hematocrit 29.7 % (37-47); Hemoglobin 10.2 g/dL (12.0-15.0); Lymphocyte # 1.87 X10^3/ul (0.83-4.51); Lymphocyte % 21.2 % (19-41); Mean Corp Hgb Conc 34.3 g/dL (32-36); Mean Corpuscular Hgb 31.9 pg (27.0-32.0); Mean Corpuscular Volume 92.8 fL (81-99); Monocyte% 3.4 % (0-10); NRBC Flagged by Analyzer 0 % (0-5); Neutrophil # 6.52 X10^3/uL (2.7-7.7); Neutrophil % 73.8 % (47-70); Platelet Count 267 K/mm3 (150-450); RBC Distribution Width CV 11.7 % (11.6-14.6); RBC Distribution Width SD 39.3 fl (35.1-43.9); White Blood Count 8.8 K/mm3 (4.4-11.0)
[2023-10-15 14:00] LABS: Glucose Challenge Gest 1H 50g 172 mg/dL (70-140)
== END | disposition home or self-care (01) ==
LOC: LAB 13:16
PROVIDERS: PCP Family Medicine; Referring Provider Registered Nurse; Visit Provider Registered Nurse
DX: Z34.90 Encounter for supervision of normal pregnancy, unspecified, unspecified trimester (principal)
CPT/HCPCS: 36415; 82950; 85025

== ENCOUNTER → 2023-10-18 | Outpatient (CLI) | payer SELFPAY ==
[2023-10-18 11:12] LABS: Glucose GTT-Gestation. Fasting 79 mg/dL (<105)
[2023-10-18 11:59] LABS: Glucose GTT-Gestational 1 Hr 180 mg/dL (<190)
[2023-10-18 13:11] LABS: Glucose GTT-Gestational 2 Hr 185 mg/dL (<165)
[2023-10-18 13:56] LABS: Glucose GTT-Gestational 3 Hr 129 L (<145)
== END | disposition home or self-care (01) ==
PROVIDERS: PCP Family Medicine; Referring Provider Registered Nurse; Visit Provider Registered Nurse
DX: Z13.1 Encounter for screening for diabetes mellitus (principal)
CPT/HCPCS: 36415; 82951; 82952